=== PATIENT | female | born 1965 | race Caucasian/White ===

== ENCOUNTER 2017-11-12 16:40 | Emergency (ER) | payer OTHER ==
[~2017-11-12] VITALS: Ht 170.2 cm; Wt 103.0 kg
[~2017-11-12 16:40] MED LIST: AMITRIPTYLINE H10 MG PO; AMLODIPINE BESY10 MG PO; ASPIRIN EC81 MG PO; AVAPRO150 MG PO; HYDROCHLOROTHIA25 MG PO; JANUVIA100 MG PO; LISINOPRIL40 MG PO; METFORMIN HCL500 MG PO; TOPROL XL100 MG PO
== END 2017-11-12 21:02 | disposition home or self-care (01) ==
LOC: ED 16:40
DX: R10.10 Upper abdominal pain, unspecified (principal); E11.9 Type 2 diabetes mellitus without complications; I10 Essential (primary) hypertension; F17.200 Nicotine dependence, unspecified, uncomplicated; E66.01 Morbid (severe) obesity due to excess calories; Z88.8 Allergy status to other drugs, medicaments and biological substances; Z79.899 Other long term (current) drug therapy
CPT/HCPCS: 74176; 80053; 81001; 83605; 83690; 85025; 96374; 96375; 99284; J1885; J2270; J2405; J7030

== ENCOUNTER 2021-08-09 14:36 | Inpatient (IN) | payer OTHER ==
[~2021-08-09] VITALS: Ht 170.2 cm; Wt 91.7 kg
--- NOTE | 2021-08-09 20:46 | EKG ---
[facility] [address] [facility] [place] [address] Signed Normal sinus rhythm Left axis deviation Moderate voltage criteria for LVH, may be normal variant ( R in aVL , [place] product ) Abnormal QRS-T angle, consider primary T wave abnormality Abnormal ECG No previous ECGs available Confirmed by RICK ALMANZAR DO ([id number]) on 08/09/2021 8:46:14 PM Electronically Signed By: RICK ALMANZAR DO 08/09/[id number] PATIENT NAME: ZEINAB ASHLEY NICOLÁS Electrocardiogram DATE OF : 61 PHYSICIAN: RICK ALMANZAR DO REPORT #: [id number] REPORT IS CONFIDENTIAL AND NOT TO BE RELEASED WITHOUT AUTHORIZATION
--- NOTE | 2021-08-09 20:55 | NUR ---
IN TO GET ADMISSION VITALS, PT ARRIVED TO THE FLOOR VIA ED STRECHER, TRANSFER SELF TO THE BED, ICE WATER PROVIDED AT THIS TIME, PT IS TUCKED INTO BED, CALL LIGHT IN PLACE
--- NOTE | 2021-08-09 22:20 | NUR ---
IN ROOM TO COMPLETE ADMISSION HX ON PT. RECHECKED PT'S BP IT WAS HIGH UPON ARRIVAL TO [facility]. SWITCHED BP CUFF TO LARGE SIZE TO FIT PT'S ARM PROPERLY. BP REMAINS ELEVATED BUT IS BELOW CALL PARAMETERS. ADMINISTERED EVENING MEDICATIONS. EDUCATED PT ON FLUID RESTRICTION AND ORIENTED TO CALL LIGHT. SHE DENIES FURTHER NEEDS, CALL LIGHT IS CLOSE.
--- NOTE | 2021-08-09 22:45 | NUR ---
ASSESSMENT COMPLETE, VSS. SBP ELEVATED, BUT WITHIN PARAMETERS AND IMPROVED COMPARED TO WHEN IN ED. pt AWAKE AND RESTING IN BED, A/OX4. DENIES PAIN AND NAUSEA, WATER AT BEDSIDE. IV SITE WNL, SALINE LOCKED. pt REPORTS LOOSING 100-200 LBS OVER THE LAST 20 YEARS. REPORTS SHE DOES NOT TAKE INSULIN AT HOME, BUT WATCHES WHAT SHE EATS. pt REPORTS SHE WAS CHECKING HER BLOOD SUGARS, BUT HAS NOT RECENTLY BECAUSE THE MACHINE WAS "DISCONTINUED". S/SX OF HYPO AND HYPERGLYCEMAI DISCUSSED, pt VERBALIZED UNDERSTANDING. WILL MONITOR. +3 EDEMA TO RLE, ELEVATED WITH PILLOW. FELIX CATHETER PATENT, VOIDING QS. NO FURTHER NEEDS, CALL LIGHT IN REACH.
--- NOTE | 2021-08-10 00:15 | NUR ---
NEW ORDER FOR IV SODIUM BICARB, WEIGHER ALLOY ORIENTEE JUSTINO AWARE AND PREPARING MEDICATION.
--- NOTE | 2021-08-10 00:45 | NUR ---
scheduled iv sodium bicarbonate and one time dose iv lasix given, see emar. iv site wnl, brisk blood return noted. velez catheter emptied, no further needs. call light in reach.
--- NOTE | 2021-08-10 02:00 | NUR ---
IN TO GET VITALS
--- NOTE | 2021-08-10 03:24 | NUR ---
BP ELEVATED, PRN BP MEDICATION PROVIDED ALONG WITH PRN TYLENOL FOR 8/10 BACK PAIN, SEE EMAR. pt A/OX4, DENEIS NAUSEA. BOWEL TONES ACTIVE. pt TENSE IN BED, OFFERED TO HELP WITH REPOSITIONING, pt DECLINED WELL REFUSED TO ELEVATE RLE, STATING "IT HURTS MORE WHEN IT'S ELEVATED". WHEN ASKED WHERE IN RLE IT HURTS pt POINTS TO THIGH AREA AND STATES, "IT FEELS LIKE IT'S BEEN RIPPED OFF". WARM BLANKET PROVIDED. pt APPEARED TO SETTLE DOWN AND IS NOW RESTING QUIETLY. WILL CONTINUE TO MONITOR. CALL LIGHT IN REACH. IV SITE WNL, FLUIDS INFUSING DIRECTED.
--- NOTE | 2021-08-10 05:40 | NUR ---
IN TO GET VITALS, BP ELEVATED, RN INFORMED, FELIX EMPTIED, PT DID NOT WANT TO GET UP FOR A DAILY WEIGHT BUT WILL TRY A LITTLE BIT LATER, NO FURTHER NEEDS AT THIS TIME
--- NOTE | 2021-08-10 06:21 | NUR ---
MANUAL B/P ON THE RIGHT ARM PERFORMED BY THIS RN 178/76. REPORTED TO PATIENT'S NURSE TIM.
--- NOTE | 2021-08-10 08:12 | NUR ---
Patient has not been taking any medications
--- NOTE | 2021-08-10 10:18 | NUR ---
Hydralazine prn 25mg po admin for bp of 194/84, p 73.
--- NOTE | 2021-08-10 11:12 | NUR ---
Dr. العلي updated regarding elevated bp. No new orders. Will continue to monitor.
--- NOTE | 2021-08-10 14:14 | NUR ---
Patient sitting up in bed watching tv, no distress. Patient reports her stomach is upset from lunch. Patient declining nausea medication. No current needs. Personal supplies and call light within reach.
--- NOTE | 2021-08-10 14:30 | NUR ---
Patient assisted to restroom and back to bed. Patient has no current needs.
--- NOTE | 2021-08-10 17:11 | NUR ---
Tylenol 650mg po admin for coughing pain.
--- NOTE | 2021-08-10 19:42 | NUR ---
BEDSIDE REPORT FROM Clint Borges RN, PT RESTING IN BED CONSUMED 50% OF DINNER, SHE REPORTS SHE FEELS VERY FULL, SHE REQUESTS TO SIT UP IN RECLINER AT THIS TIME, PT ASSISTED UP TO RECLINER.
--- NOTE | 2021-08-10 21:38 | NUR ---
PT SITTING UP IN RECLINER SHE REPORTS NO PAIN OR NAUSEA AT THIS TIME, SHE IS ALERT AND ORIENTED. NO COMPLAINTS OR CONCERNS, NO REQUESTS AT THIS TIME.
--- NOTE | 2021-08-10 22:34 | NUR ---
PT BACK TO BED FROM RECLINER, FELIX CARE COMPLETE BY MARLENA MEJIA.
--- NOTE | 2021-08-10 22:38 | NUR ---
PATIENT CALLED STATING READY FOR BED. SBA. FELIX CARE DONE. ROOM LIGHTS OFF. NO OTHER NEEDS AT THIS TIME. CALL LIGHT IN REACH.
--- NOTE | 2021-08-11 02:39 | NUR ---
PT RESTING IN BED LATERALLY ON LEFT SIDE, NO DISTRESS NOTED, RR EVEN/SHALLOW AT 18 BPM. CALL LIGHT IN REACH.
--- NOTE | 2021-08-11 03:43 | NUR ---
PATIENT CALLED ASK FOR WATER. PROVIDED.
--- NOTE | 2021-08-11 04:51 | NUR ---
PT HAS SLEPT WELL OVER SHIFT, SHE HAS DENIED ANY PAIN OR NAUSEA OVER SHIFT, QUANTITY SUFFICIENT URINE OUT OF FELIX, PT V/S HAVE BEEN STABLE, NO PRN GIVEN OVER SHIFT, WAS ADMINISTERED MELATONIN AT [facility]. SHE HAS BEEN ONE PERSON ASSIST TO TRANSFER FROM RECLINER TO BED. PT REMAINS STABLE ON ROOM AIR, AND S/L,MAINTAINING FLUID RESTRICTION WITHIN LIMITS.
--- NOTE | 2021-08-11 06:36 | NUR ---
V/S, I&O'S AND DAILY WEIGHT DONE. NO OTHER NEEDS AT THIS TIME.
--- NOTE | 2021-08-11 07:42 | NUR ---
PATIENT IS CURRENTLY HAVE ECHO.
--- NOTE | 2021-08-11 08:50 | NUR ---
MORNING ASSESSMENT DONE. PATIENT IS SITTING UP IN BED TO EAT BREAKFAST. PATIENT DENIES , IS ON ROOM AIR AT 96%. PATIENT DENIES WANTING TO HAVE RIGHT LEG ELEVATED, SAID, "IT HURTS!" MORNING MEDICATIONS GIVEN, PER BP. FELIX CATHETER IS DRAINING CLEAR YELLOW URINE.
--- NOTE | 2021-08-11 09:45 | NUR ---
URINE FROM FELIX CATHETER SENT TO LAB.
--- NOTE | 2021-08-11 10:18 | NUR ---
BICARB INFUSION STARTED AT 125 ML/HR.
--- NOTE | 2021-08-11 13:48 | NUR ---
DON HAYWARD REQUESTED I NOT DISTURB PT-SHE HAS A BAD HEADACHE AND HAD JUST RECEIVED MEDS. WILL FOLLOW NEEDED
--- NOTE | 2021-08-11 13:48 | NUR ---
PATIENT IN BED WATCHING TV. VITALS AND I&O'S CHARTED. PATIENT REFUSED SHOWER, AM, AND ORAL CARE. CALL LIGHT IN REACH. NO FURTHER NEEDS AT THIS TIME.
--- NOTE | 2021-08-11 14:49 | NUR ---
PATIENT GIVEN AFTERNOON MEDICATIONS, DENIES OTHER NEEDS. EDEMA IS SLIGHTLY IMPROVED TO RIGHT LEG.
--- NOTE | 2021-08-11 16:33 | NUR ---
PATIENT SITTING UP IN BED, VISITING WITH SPOUSE. PATIENT DENIES NEEDS AT THIS TIME.
--- NOTE | 2021-08-11 17:24 | NUR ---
Spoke with pt and she lives with her spouse. Plans on dc to home. No steps or stairs. Pt denies needs.
--- NOTE | 2021-08-11 18:27 | NUR ---
PATIENT IN BED WATCHING TV. VITALS AND I&O'S CHARTED. CALL LIGHT IN REACH. NO FURTHER NEEDS AT THIS TIME.
--- NOTE | 2021-08-11 19:35 | NUR ---
IN TO SEE PT. PT LAYING IN BED WITH HOB ELEVATED. PT AWAKE AND ALERT. PT DENIES PAIN AT [facility]. NO OTHER NEEDS OR REQUEST AT THIS TIME. CALL LIGHT INT REACH.
--- NOTE | 2021-08-11 21:07 | NUR ---
IN TO SEE PT. PT ALERT AND OREITNED X 4. SCHEDULED MEDICATIONS AT ASSESSMENT DUE. I AND O'S COMPLETED. CRACKLES NOTED TO BILATERALY MIDDLE LOBES AND BASES. PT SALINE LOCKED AT THISITME. IV FLUSHING WELL, NO PAIN S/SX OF PHELIBITIES OR INFILTRATION NOTED. PT GIVEN IS AND EDUCATION PROVIDED. PT VERBALIZED UNDERSRTADNING AND ABLE TO DEMONSTRATE UNDERSTANDING. IS PERFORMED X 2 1250MLS. F/C DRAINING WELL AT THIS TIME. PT REPORTS HEADACH PAIN. PT REPORTS "ITS LIKE TENSION." PT REPORTS PAIN 3/10. PT GIVEN PRN TYLENOL PER ORDER AND REQUEST. PT UPDTAED ON PLAN OF CARE. 100MLS FRESH WATER PROVIDED. NO OTHER NEEDS OR REQUESTS AT THIS TIME. CALL LIGHT IN REACH.
--- NOTE | 2021-08-11 22:34 | NUR ---
IN TO SEE PT, F/U PAIN ASSESSMENT DUE. PT REPORTS PAIN 0/10. PT REPORTS SHE CONTINUES TO USE IS AT THE BEDSIDE WHILE AWAKE. NO OTHER NEEDS OR REQUESTS AT THIS TIME. CALL LIGHT IN REACH.
--- NOTE | 2021-08-12 02:03 | NUR ---
IN TO CHEK ON PT, VS AND ASSESSMENT DUE. PT SLEEPING RR 20. NO SIGNS OF PAIN NOTED. IV FLUIDS CONTINUE RUNNING AT THIS TIME. I AND O'S COMPLETED. CALL LIGHT IN REACH.
--- NOTE | 2021-08-12 03:01 | NUR ---
IN TO CHECK ON PT. PT RESTING WITH EYES CLOSED, RR 16. NO SIGNS OF PAIN NOTED. CALL LIGHT IN REACH.
--- NOTE | 2021-08-12 05:47 | NUR ---
IN TO SEE PT. VS COMPLETED, PT HAS ELEVATED BP ABOVE PARAMETER, PRN HYDROLAZINE GIVEN PER ORDER. I AND O'S COMPLETED. PT DOING IS INDEPENDNELTY IN BED WHILE AWAKE. PT GIVEN 150MLS ICE WATER. NO OTHER NEEDS OR RREQUESTS AT THIS TIME. CALL LIGHT IN REACH.
--- NOTE | 2021-08-12 05:57 | NUR ---
ALERT AND OREITNED X 4. 2 GM NA+ DIET. 1800 FLUID RESTICTION, TOLERATING WELL. PRN APAP GIVEN X 1 DURING SHIFT. CRACKLES NOTED, IS AT BEDSIDE, PT EDUCATION PROVIDED, USING IND WHILE AWAKE. 3+ PE EDEMA NOTED TO RLE. SBA. RA. SYSTOLIC BP 185, PRN HYDRAZINE GIVEN PER ORDER. AM LABS COMPLETED. WEIGHT THIS AM 91.6KG. F/C DRAINING CLEAR YELLOW URINE ADEQUATELY. SL. PT RESTED WELL THROUGHOUT SHIFT.
--- NOTE | 2021-08-12 07:10 | NUR ---
THIS RN RECEIVED REPORT ROSEANNE AND SHEELA RN. PT APPEARS TO BE RESTING AT THIS TIME.
--- NOTE | 2021-08-12 08:10 | NUR ---
PT AWAKE IN THE ROOM WATCHING TV IN BED. WHITE BOARD UPDATED, WARM CLOTH GIVEN FOR FACE. CALL LIGHT WITHIN REACH. NO FURTHER NEEDS AT THIS TIME.
--- NOTE | 2021-08-12 08:50 | NUR ---
I was able to visit with Joana today regarding her care and plan of care while here in the hospital. Joana states that her "Care is very good." She also confirms that she feels comfortable in her room and feels like she has access to what she needs at this time. Her pain is well controlled per her statement, and she is happy with the cleanliness of her room. She said that she does understand her medications that she is getting, and again expresses no concerns.
--- NOTE | 2021-08-12 08:56 | NUR ---
THIS RN IN PTS ROOM TO GIVE PT HER MORNING MEDS. THIS RN DISCUSSED WITH PT HER FLUID RESTRICTION PLAN FOR THE DAY. PT STATED UNDERSTANDING. THIS RN DICUSSED PTS MEDS, INCLUDING MAGNESIUM. PT COMLIANT AND PLEASANT THIS AM. PT STATES THAT SHE NEEDS NOTHING ELSE AT [facility].
--- NOTE | 2021-08-12 09:08 | NUR ---
Notified by Dr. العلي pt will need a follow up with nephrology. Called and spoke with Rosi OCHOA from [facility]. Pt has been assigned to Dr. Archibald as Dr. Avalos no longer works at [facility]. They will make a referral to nephrology.
--- NOTE | 2021-08-12 09:50 | NUR ---
Spoke with Joana, she states she is feeling better today. Denies needs to go home. Per 829 meeting pt will remain for two more days. Called Rosi at [facility] and set up a follow up appt. [facility] will set up an appt with nephrology.
--- NOTE | 2021-08-12 10:00 | NUR ---
THIS RN IN PTS ROOM TO CHECK ON PT. PTS IV MAG FINISHED AT THIS TIME. PT STATES THAT SHE IS DROWSY. THIS RN WILL REMOVE FELIX WHEN PT WAKES UP FROM NAP
--- NOTE | 2021-08-12 13:30 | NUR ---
PT AWAKE IN CHAIR. PT RN NOTIFIED OF NO VOID. CALL LIGHT WITHIN REACH. NO FURTHER NEEDS AT THIS TIME.
--- NOTE | 2021-08-12 15:05 | NUR ---
THIS RN IN PTS ROOM TO CHECK ON HER. PT UP TO CHAIR AT THIS TIME. PTS RIGHT LOWER LEG STILL EDEMATOUS +3 BUT THERE IS NO PAIN NOTED. THIS RN EDUCATED PT ABOUT PUTTING HER LEGS UP TO ASSIST WITH THE SWELLING. PT STATED UNDERSTANDING AND RECLINED HER LEGS AFTER EDUCATION. PT STATES NOTHING ELSE AT THIS TIME.
--- NOTE | 2021-08-12 18:16 | NUR ---
PT AWAKE IN BED WATCHING TV. CALL LIGHT WITHIN REACH. WARM BLANKET GIVEN. NO FURTHER NEEDS AT THIS TIME.
--- NOTE | 2021-08-12 19:00 | NUR ---
IN TO SEE PT. PT ALERT AND AWAKE, AT BEDSIDE. PT UPDATED ON PLAN OF CARE. NO NEEDS OR REQUEST. CALL LIGHT IN REACH.
--- NOTE | 2021-08-12 19:20 | NUR ---
IN TO SEE PT. PT ALERT AND AWAKE, NO PAIN. UPDATED ON PLAN OE CARE. CALL LIGHT IN REACH.
--- NOTE | 2021-08-12 21:27 | NUR ---
IN TO SEE PT. SCHEDULED MEDICATIONS AND [id number] DUE. I AND O'S COMPLETED. VS COMPLETED. PT DENIES PAIN. CRACKLES IN BILATERAL BASES, WHEEZES ANTERIORLY ON INSPIRATION. 96 RA. 2+ pe TO RIGHT FOOT, NO EDEMA TO LLE. PT GIVEN 200 MLS FLUIDS AT THIS TIME. PT ALERT AND OREITNED X 3. DENIES PAIN. NO OTHER NEEDS OR COCNERS AT THIS TIME. CALL LIGHT IN REACH.
--- NOTE | 2021-08-12 23:42 | NUR ---
IN TO CHECK ON PT. PT SLEEPING WITH HOB ELEVATED. RR 20. NO SIGNS OF PAIN NOTED. CALL LIGHT IN REACH.
--- NOTE | 2021-08-13 00:45 | NUR ---
ASSUMED CARE OF PATIENT. PATIENT IS RESTING IN BED WITH EYES CLOSED, RR 19. CALL LIGHT IN REACH.
--- NOTE | 2021-08-13 02:15 | NUR ---
PATIENT IS RESTING IN BED WITH EYES CLOSED, RR 17. CALL LIGHT IN REACH.
--- NOTE | 2021-08-13 03:35 | NUR ---
PATIENT UP TO THE RESTROOM. PATIENT WAS ABLE TO VOID. PATIENT IS BACK IN BED RESTING. PATIENT DENIES ANY NEEDS. PATIENT PROVIDED WITH LAST OF FREE WATER PER FLUID RESTRICTION. CALL LIGHT IN REACH.
--- NOTE | 2021-08-13 04:14 | NUR ---
PATIENT IS RESTING IN BED WITH EYES CLOSED, RR 18. CALL LIGHT IN REACH.
--- NOTE | 2021-08-13 06:20 | NUR ---
MORNING VITALS TAKEN AND RECORDED. INTAKE AND OUTPUT RECORDED. NEW IV STARTED. PATIENT DENIES ANY FURTHER NEEDS. CALL LIGHT IN REACH.
--- NOTE | 2021-08-13 07:36 | NUR ---
PT RESTING IN BED EYES CLOSED RR EVEN NO DISTRESS NOTED, KATE BEDSIDE REPORT PT HAS HAD AN UNREMARKABLE NIGHT, INDEPENDENT IN ROOM.
--- NOTE | 2021-08-13 09:10 | NUR ---
Supplies were put into the bathroom for a shower and patient agreed to call when ready for a shower. Patient is independent in the room. Vitals, I&Os are complete. Patient's blood pressure was 170/65. Map 91. Pulse 63.
--- NOTE | 2021-08-13 09:46 | NUR ---
PT UP TO SHOWER INDEPENDENTLY, IV SITE WRAPPED. ASSESSMENT COMPLETE
--- NOTE | 2021-08-13 09:57 | NUR ---
PT FINISHED WITH SHOWER. PT UP TO CHAIR, INDEPENDANTLY. WARM BLANKET PROVIDED. FLOOR CLEANED. LINENES CHANGED. PT DENIES ADDITIONAL REQUESTS OR COMPLAINTS. CALL LIGHT WITHIN REACH.
--- NOTE | 2021-08-13 10:15 | NUR ---
Spoke with Joana. Cont. to feel better. Spouse in room. Denies needs for dc to home. Awaiting visit from hospitalist.
--- NOTE | 2021-08-13 12:08 | NUR ---
PT REPORTS TOE NAILS ARE PAINFUL, SHE HAS AN APPOINTMENT FOR THE , SHE WAS WONDERING IF THIS HOSPITAL HAS SERVICES TO ATTEND HER TOE NAILS HERE. EXPLAINED TO PT THAT WE DO NOT HAVE A PROVIDER IN HOUSE, HOWEVER IF THE ATTENDING DOCTOR FEELS NEED TO SHE CAN HAVE OR CONSULT. PT SAID NO ITS NOT THAT BAD. PT SPOUSE AT CHAIR SIDE.
--- NOTE | 2021-08-13 13:43 | NUR ---
PT'S SPOUSE LEAVING AT THIS TIME AFTER HAVING VISIT.
--- NOTE | 2021-08-13 14:00 | NUR ---
Patient is in chair. Call light is in reach.
--- NOTE | 2021-08-13 16:03 | NUR ---
PT IS SITTING UP IN RECLINER, LEGS UP, SHE REPORTS NO PAIN OR NAUSEA, SHE REPORTS SHE HAS NO NEEDS OR REQUESTS AT THIS TIME. SHE IS SMILING AND WATCHING TV.
--- NOTE | 2021-08-13 17:38 | NUR ---
ORDERED IVF TO START NS @125/ML, OK TO D/C FLUID RESTRICITON. PT SITTING UP IN RECLINER EATING DINNER AT THIS TIME.
--- NOTE | 2021-08-13 17:40 | NUR ---
PT HAS SHOWERED, SHE HAS BEEN UP IN RECLINER ALL AFTERNOON, SHE HAS BEEN INDEPENDENT. SHE HAS REPORTED NOT HAVING PAIN ALL SHIFT, NO NAUSEA, GOOD APPETITE TODAY, DISCONT. FLUID RESTRICT AND STARTED IVF. HER RLE SWELLING IS IMPROVING.
--- NOTE | 2021-08-13 18:13 | NUR ---
Patient's BP was 164/71. 95 Map. 66 Pulse. Patient is comfortable in chair with call light in reach.
--- NOTE | 2021-08-13 18:48 | NUR ---
PT UP TO BATHROOM STANDBY ASSIST FOR IV POLE. PT TOLERATED WELL, STEADY GAIT.
--- NOTE | 2021-08-13 19:45 | NUR ---
RECEIVED REPORT FROM DAY SHIFT RN. PATIENT IS RESTING IN RECLINER WATCHING TV. PATIENT DENIES ANY NEEDS. CALL LIGHT IN REACH.
--- NOTE | 2021-08-13 21:40 | NUR ---
PATIENT ASSESMENT COMPLETED. PATIENT DENIES ANY PAIN OR NAUSEA. IV INFFUSING PER ORDER. VITALS TAKEN AND RECORDED. INTAKE AND OUTPUT RECORDED. FRESH ICE WATER PROVIDED. PATIENT IS AAOX4. PATIENT DENIES ANY FURTHER NEEDS. PRN SLEEP AID GIVEN PER ORDER. CALL LIGHT IN REACH.
--- NOTE | 2021-08-13 23:32 | NUR ---
PATIENT IS RESTING IN BED WITH EYES CLSOED, RR 16. CALL LIGHT IN REACH. IV INFUSING PER ORDER.
--- NOTE | 2021-08-14 01:33 | NUR ---
PATIENT IS RESTING IN BED. IV ALARMING. NEW BAG OF FLUID INFUSING PER ORDER. PATIENT DENIES ANY NEEDS. CALL LIGHT IN REACH.
--- NOTE | 2021-08-14 02:32 | NUR ---
PATIENT ASSISTED TO THE RESTROOM A SBA. PATIENT WAS ELIZABETH TO VOID. PATIENT IS BACK IN BED RESTIGN. PATIENT DENIES ANY NEEDS. CALL LIGHT IN REACH. IV INFUSING PER ORDER.
--- NOTE | 2021-08-14 06:30 | NUR ---
PATIENT ASSISTED TO THE RESTROOM A SBA. PATIENT IS BACK IN BED RESTING. PATIENTS DAILY WEIGHT TAKEN AND RECORDED. VITALS TAKEN AND RECORDED. INTAKE AND OUTPUT RECORDED. PATIENTS IV INFUSING PER ORDER. PATIENT DENIES ANY NEEDS. CALL LIGHT IN REACH.
--- NOTE | 2021-08-14 07:30 | NUR ---
report recieved from night warehouse manager RN, pt sitting in bed wacthing tv, call light within reach NS @125, denies any needs at the moment.
--- NOTE | 2021-08-14 08:45 | NUR ---
rn in room to do morning assessment, pt denies any pain at the moment, no sob, rr even and nonlabored. no needs at the moment
--- NOTE | 2021-08-14 09:45 | NUR ---
Spoke with Joana. She plans on dc to home today with her spouse. Denies needs, states feeling so much better than on admit.
[2021-08-14] MEDS ORDERED: AMLODIPINE BESY10 MG PO (10:06)
[2021-08-14] MEDS ORDERED: DOXAZOSIN MESYLA1 MG PO (10:06)
--- NOTE | 2021-08-14 10:51 | NUR ---
Patient is in bed and pharmacy is in the room. is in the room. Call light is in reach.
--- NOTE | 2021-08-14 12:46 | NUR ---
CONNECTED WITH BOTH PT AND HER SPOUSE THEY WERE LEAVING IN WC FOR DC. GAVE ENCOURAGEMENT AND BLESSING. WILL FOLLOW NEEDED
== END 2021-08-14 11:45 | disposition home or self-care (01) | DRG 683 ==
LOC: ED 14:36 → MS 20:26
PROVIDERS: ADMIT Student in an Organized Health Care Education/Training Program; ATTEND Student in an Organized Health Care Education/Training Program
PROC: 8E0ZXY6 Isolation (ICD-10-PCS; principal; 2021-08-09)
DX: N17.0 Acute kidney failure with tubular necrosis (principal); I50.32 Chronic diastolic (congestive) heart failure; I13.0 Hypertensive heart and chronic kidney disease with heart failure and stage 1 through stage 4 chronic kidney disease, or unspecified chronic kidney disease; E87.2 Acidosis; Z20.822 Contact with and (suspected) exposure to COVID-19; B97.4 Respiratory syncytial virus as the cause of diseases classified elsewhere; N18.9 Chronic kidney disease, unspecified; E11.22 Type 2 diabetes mellitus with diabetic chronic kidney disease; D50.9 Iron deficiency anemia, unspecified; D63.1 Anemia in chronic kidney disease; F17.200 Nicotine dependence, unspecified, uncomplicated; Z79.899 Other long term (current) drug therapy
CPT/HCPCS: 51702; 71045; 74176; 80048; 80053; 80061; 81001; 82553; 82570; 82803; 83605; 83735; 83880; 84100; 84156; 84300; 84443; 84484; 85025; 85379; 93306; 93971; 99285-25; J1644; J1940; J3475; J7030; U0003

== ENCOUNTER 2021-11-03 15:13 | Emergency (ER) | payer OTHER ==
[~2021-11-03] VITALS: Ht 167.6 cm; Wt 94.8 kg
[~2021-11-03 15:13] MED LIST changes: +DOXAZOSIN MESYLA1 MG PO
== END 2021-11-04 01:34 | disposition home or self-care (01) ==
LOC: ED 15:13
DX: E11.22 Type 2 diabetes mellitus with diabetic chronic kidney disease (principal); I12.0 Hypertensive chronic kidney disease with stage 5 chronic kidney disease or end stage renal disease; N18.5 Chronic kidney disease, stage 5; D63.1 Anemia in chronic kidney disease; E11.40 Type 2 diabetes mellitus with diabetic neuropathy, unspecified; F17.200 Nicotine dependence, unspecified, uncomplicated; Z88.8 Allergy status to other drugs, medicaments and biological substances; Z79.899 Other long term (current) drug therapy
CPT/HCPCS: 36415; 80053; 85025; 86850; 86900; 86901; 86922; 99283; A9270; P9016

== ENCOUNTER 2021-11-28 09:57 | Emergency (ER) | payer OTHER ==
[~2021-11-28] VITALS: Ht 167.6 cm; Wt 94.8 kg
--- OUTSIDE RECORDS SUMMARY | 2021-11-28 10:04 | XMS ---
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 - 2 Visits in 30 Days CARE PROVIDERS There are no care providers on record at this time. Oren has no Care Guidelines for this patient. Aram VISIT COUNT (12 MO.) 3 [facility] [place] TOTAL 3 NOTE: Visits indicate total known visits. ED/C VISIT TRACKING (12 MO.) 11/28/2021 09:58 [facility] [place] TYPE: Emergency COMPLAINT: - DEHYDRATED 11/03/2021 15:14 [facility] [place] TYPE: Emergency COMPLAINT: - ABNORMAL LAB RESULTS DIAGNOSES: - Nicotine dependence, unspecified, uncomplicated - Type 2 diabetes mellitus with diabetic neuropathy, unspecified - Chronic kidney disease, stage 5 - Type 2 diabetes mellitus with diabetic chronic kidney disease - Abnormal finding of blood chemistry, unspecified - Allergy status to other drugs, medicaments and biological substances - Hypertensive chronic kidney disease with stage 5 chronic kidney disease or end stage renal disease - Other watermaster (current) drug therapy - Anemia in chronic kidney disease 08/09/2021 14:37 [facility] [place] TYPE: Emergency COMPLAINT: - R LEG SWELLING INPATIENT VISIT TRACKING (12 MO.) 08/09/2021 20:26 [facility] [place] TYPE: Medical Surgical COMPLAINT: - ACUTE KIDNEY INJURY DIAGNOSES: - Nicotine dependence, unspecified, uncomplicated - Nicotine dependence, unspecified, uncomplicated - Hypertensive heart and chronic kidney disease with heart failure and stage 1 through stage 4 chronic kidney disease, or unspecified chronic kidney disease - Acute kidney failure with tubular necrosis - Anemia in chronic kidney disease - Chronic kidney disease, unspecified - Other watermaster (current) drug therapy - Chronic diastolic (congestive) heart failure - Iron deficiency anemia, unspecified - Acute kidney failure with tubular necrosis - Chronic diastolic (congestive) heart failure - Hypertensive heart and chronic kidney disease with heart failure and stage 1 through stage 4 chronic kidney disease, or unspecified chronic kidney disease - Iron deficiency anemia, unspecified - Respiratory syncytial virus as the cause of diseases classified elsewhere - Respiratory syncytial virus as the cause of diseases classified elsewhere - Anemia in chronic kidney disease - Acute kidney failure, unspecified - Type 2 diabetes mellitus with diabetic chronic kidney disease - Chronic kidney disease, unspecified - Type 2 diabetes mellitus with diabetic chronic kidney disease - Other watermaster (current) drug therapy - Acidosis - Acidosis [email or web address]
[2021-11-28] MEDS ORDERED: ASPIRIN81 MG PO (10:43)
--- NOTE | 2021-11-29 07:13 | EKG ---
[facility] [address] [place] [address] Signed Sinus bradycardia Left axis deviation Minimal voltage criteria for LVH, may be normal variant ( Vik product ) Nonspecific T wave abnormality Abnormal ECG When compared with ECG of 09-AUG-2021 15:29, Vent. rate has decreased BY 30 BPM Nonspecific T wave abnormality, worse in Lateral leads Confirmed by ANA BEASLEY MD ([id number]) on 11/29/2021 7:13:18 AM Electronically Signed By: ANA BEASLEY MD 11/29/21 0713 PATIENT NAME: ZEINAB ASHLEY Electrocardiogram DATE OF : 61 PHYSICIAN: ANA BEASLEY MD REPORT #: [id number] REPORT IS CONFIDENTIAL AND NOT TO BE RELEASED WITHOUT AUTHORIZATION
== END 2021-11-28 12:23 | disposition home or self-care (01) ==
LOC: ED 09:57
DX: R53.1 Weakness (principal); D64.9 Anemia, unspecified; E11.22 Type 2 diabetes mellitus with diabetic chronic kidney disease; I12.0 Hypertensive chronic kidney disease with stage 5 chronic kidney disease or end stage renal disease; N18.5 Chronic kidney disease, stage 5; E11.21 Type 2 diabetes mellitus with diabetic nephropathy; F17.200 Nicotine dependence, unspecified, uncomplicated; Z79.899 Other long term (current) drug therapy; Z88.8 Allergy status to other drugs, medicaments and biological substances; Z79.82 Long term (current) use of aspirin
CPT/HCPCS: 36415; 80053; 84484; 85025; 85060; 93005; 93010; 99285-25; J7040

== ENCOUNTER 2021-12-03 06:07 | Emergency (ER) | payer OTHER ==
[~2021-12-03] VITALS: Ht 167.6 cm; Wt 86.2 kg
[~2021-12-03 06:07] MED LIST changes: +ASPIRIN81 MG PO
--- OUTSIDE RECORDS SUMMARY | 2021-12-03 06:10 | XMS ---
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 Care History Medical/Surgical 12/01/2021 [facility] - PATIENT IS [facility] ELIGIBLE, \T\nbsp; PLEASE REFER PATIENT TO [facility] FOR NON EMERGENT MEDICAL NEEDS. \T\nbsp; [facility] CAN SEE PATIENTS SAME DAY FOR APTS IF PATIENT CALLS FIRST THING IN THE MORNING. E.D. VISIT COUNT (12 MO.) 4 [facility] TOTAL 4 NOTE: Visits indicate total known visits. ED/UCC VISIT TRACKING (12 MO.) 12/03/2021 06:08 [facility] [place] TYPE: Emergency COMPLAINT: - POST SURGICAL WOUND PAIN 11/28/2021 09:58 [facility] [place] TYPE: Emergency COMPLAINT: - DEHYDRATED DIAGNOSES: - Type 2 diabetes mellitus with diabetic nephropathy - Chronic kidney disease, stage 5 - Weakness - Allergy status to other drugs, medicaments and biological substances - termite treater (current) use of aspirin - Nicotine dependence, unspecified, uncomplicated - Type 2 diabetes mellitus with diabetic chronic kidney disease - Hypertensive chronic kidney disease with stage 5 chronic kidney disease or end stage renal disease - Anemia, unspecified - Other assisted (current) drug therapy 11/03/2021 15:14 [facility] [place] TYPE: Emergency [...] or end stage renal disease - Other assisted (current) drug therapy - Anemia in chronic [...] - Chronic kidney disease, unspecified - Other emt intermediate (current) drug therapy - Chronic diastolic (congestive) [...] with diabetic chronic kidney disease - Other assisted (current) drug therapy - Acidosis - Acidosis [email or web address]
== END 2021-12-03 09:40 | disposition home or self-care (01) ==
LOC: ED 06:07
DX: T85.71XA Infection and inflammatory reaction due to peritoneal dialysis catheter, initial encounter (principal); N99.89 Other postprocedural complications and disorders of genitourinary system; I12.0 Hypertensive chronic kidney disease with stage 5 chronic kidney disease or end stage renal disease; E11.22 Type 2 diabetes mellitus with diabetic chronic kidney disease; E11.40 Type 2 diabetes mellitus with diabetic neuropathy, unspecified; N18.5 Chronic kidney disease, stage 5; F17.200 Nicotine dependence, unspecified, uncomplicated; Z88.8 Allergy status to other drugs, medicaments and biological substances; Z79.899 Other long term (current) drug therapy; Z79.82 Long term (current) use of aspirin
CPT/HCPCS: 36415; 74176; 80048; 83605; 85025; 85060; 99284-25

== ENCOUNTER 2023-06-11 18:02 | Emergency (ER) | payer MEDICARE, OTHER ==
[~2023-06-11] VITALS: Ht 167.6 cm; Wt 86.2 kg
[2023-06-11 18:30] LABS: BASOPHILS 0.8 % (0-2); HEMATOCRIT 27.1 % (35.0-50.0); HEMOGLOBIN 9.1 g/dL (12.0-18.0); LYMPHOCYTES 12.3 % (24-44); MCH 32.6 (27-36); MCHC 33.5 g/dl (30-36); MCV 97.3 fl (81-99); MONOCYTES 4.9 % (0-12); PLATELET COUNT 193 K/uL (140-440); RBC 2.79 M/ul (4.3-5.7); RDW 13.3 (10.5-15.0)
[2023-06-11 18:44] LABS: ALBUMIN 3.3 g/dL (3.4-5.0); ALBUMIN/GLOBULIN RATIO 0.87 (1.1-2.4); ANION GAP 19.6 (7-21); BILIRUBIN, TOTAL 0.4 ng/dL (0.2-1.0); BUN/CREATININE RATIO 9.89 (6.0-28.6); CALCIUM 7.7 mg/dL (8.5-10.1); CREATININE, SERUM 8.29 mg/dL (0.55-1.02); POTASSIUM 3.6 mmol/L (3.5-5.1); PROTEIN, TOTAL 7.1 g/dL (6.4-8.2)
[2023-06-11] MEDS ORDERED: CYCLOBENZAPRINE10 MG PO (20:13)
[2023-06-11] MEDS ORDERED: HYDROCODON-ACE1 EA10 PO (20:13)
[2023-06-11 20:55] VITALS: BP 188/79
== END 2023-06-11 20:55 | disposition home or self-care (01) ==
LOC: ED 18:02
PROVIDERS: Emergency Medicine
DX: R25.2 Cramp and spasm (principal); I12.0 Hypertensive chronic kidney disease with stage 5 chronic kidney disease or end stage renal disease; E11.22 Type 2 diabetes mellitus with diabetic chronic kidney disease; N18.6 End stage renal disease; Z99.2 Dependence on renal dialysis; E11.40 Type 2 diabetes mellitus with diabetic neuropathy, unspecified; F17.200 Nicotine dependence, unspecified, uncomplicated; Z91.048 Other nonmedicinal substance allergy status; Z79.899 Other long term (current) drug therapy; Z79.82 Long term (current) use of aspirin
CPT/HCPCS: 36415; 80053; 83735; 85025; 96374; 96375; 99283-25; A9270; J1170; J2405

== ENCOUNTER 2024-02-03 04:17 | Emergency (ER) | payer MEDICARE, OTHER ==
[~2024-02-03] VITALS: Ht 167.6 cm; Wt 102.0 kg
[~2024-02-03 04:17] MED LIST changes: +CYCLOBENZAPRINE10 MG PO; +HYDROCODON-ACE1 EA10 PO
[2024-02-03] MEDS ORDERED: ASPIRIN 81 MG CHEW PO ONE (04:30)
[2024-02-03] MEDS ORDERED: NITROGLYCERIN 0.4 MG SUBL SL PRN (04:30)
[2024-02-03] MEDS ORDERED: ondansetron HCL 4 MG/2 ML VIAL IV ONE (04:30)
[2024-02-03] MEDS ORDERED: FAMOTIDINE 20 MG TAB PO ONE (04:30)
[2024-02-03] MEDS ORDERED: methylPREDNISolone SOD SUCC 125 MG/2 ML VIAL IV ONE (04:30)
[2024-02-03] MEDS ORDERED: MORPHINE SULFATE 4 MG/ML VIAL IV ONE (04:30)
[2024-02-03] MEDS ORDERED: ALBUTEROL/IPRATROPIUM 3 ML NEB INH ONE (04:30)
[2024-02-03 04:39] LABS: BASOPHILS 0.6 % (0-2); EOSINOPHILS 1.1 % (0-6); HEMATOCRIT 28.3 % (35.0-50.0); HEMOGLOBIN 9.2 g/dL (12.0-18.0); LYMPHOCYTES 5.5 % (24-44); MCHC 32.4 g/dl (30-36); MCV 95.7 fl (81-99); MONOCYTES 4.5 % (0-12); NEUTROPHILS 88.3 % (39-80); PLATELET COUNT 232 K/uL (140-440); RBC 2.96 M/ul (4.3-5.7); RDW 13.8 (10.5-15.0)
[2024-02-03] MEDS ORDERED: METOPROLOL TART25 MG PO (04:39)
[2024-02-03] MEDS ORDERED: FAMOTIDINE 20 MG/ 2 ML VIAL IV ONE (04:45)
[2024-02-03 05:00] LABS: ALBUMIN 2.5 g/dL (3.4-5.0); ALBUMIN/GLOBULIN RATIO 0.61 (1.1-2.4); ALKALINE PHOSPHATASE 106 U/L (46-116); ALT (SGPT) 10 U/L (14-59); ANION GAP 21.5 (7-21); AST (SGOT) 12 U/L (15-37); BILIRUBIN, TOTAL 0.4 ng/dL (0.2-1.0); BUN/CREATININE RATIO 7.37 (6.0-28.6); CARBON DIOXIDE 21 mmol/L (21-32); CHLORIDE 102 mmol/L (98-107); GLOMERULAR FILTRATION RATE,EST 4 mL/min (>60); POTASSIUM 4.5 mmol/L (3.5-5.1); PROTEIN, TOTAL 6.6 g/dL (6.4-8.2); UREA NITROGEN 76 mg/dL (7-18)
[2024-02-03 05:23] LABS: CALCIUM 6.4 mg/dL (8.5-10.1)
[2024-02-03 05:23] LABS: INFLUENZA B NAA NEGATIVE (NEGATIVE); RESPIRATORY SYNCYTIAL VIR NAA NEGATIVE (NEGATIVE)
[2024-02-03] MEDS ORDERED: CALCIUM CHLORIDE 1,000 MG/10 ML SYR IV ONE (05:30)
[2024-02-03] MEDS ORDERED: hydrALAZINE HCL 20 MG/ML VIAL IV PRN (05:45)
[2024-02-03] MEDS ORDERED: DOXAZOSIN MESYLATE 4 MG TAB PO ONE (08:00)
[2024-02-03] MEDS ORDERED: AMLODIPINE BESYLATE 10 MG TAB PO ONE (08:00)
[2024-02-03] MEDS ORDERED: METOPROLOL SUCCINATE 25 MG TABCR PO ONE (08:00)
--- NOTE | 2024-02-03 12:00 | EKG ---
[facility] [address] [place] [address] Signed Sinus rhythm with premature atrial complexes Left anterior fascicular block Minimal voltage criteria for LVH, may be normal variant ( [place] product ) Abnormal ECG When compared with ECG of 28-NOV-2021 10:45, premature atrial complexes are now present Vent. rate has increased BY 32 BPM Nonspecific T wave abnormality, improved in Lateral leads QT has lengthened Confirmed by Jimmy Timmons MD ([id number]) on 02/03/2024 12:00:22 PM Electronically Signed By: JIMMY TIMMONS 02/03/24 1200 PATIENT NAME: ZEINAB ASHLEY Electrocardiogram DATE OF : 61 PHYSICIAN: JIMMY TIMMONS REPORT #: [id number] REPORT IS CONFIDENTIAL AND NOT TO BE RELEASED WITHOUT AUTHORIZATION
[2024-02-03 12:31] VITALS: BP 159/76
== END 2024-02-03 12:34 | disposition short-term general hospital (02) ==
LOC: ED 04:17
PROVIDERS: Internal Medicine
DX: J81.1 Chronic pulmonary edema (principal); R07.9 Chest pain, unspecified; I12.0 Hypertensive chronic kidney disease with stage 5 chronic kidney disease or end stage renal disease; N18.5 Chronic kidney disease, stage 5; E11.22 Type 2 diabetes mellitus with diabetic chronic kidney disease; F17.200 Nicotine dependence, unspecified, uncomplicated; Z88.8 Allergy status to other drugs, medicaments and biological substances; Z79.899 Other long term (current) drug therapy; Z79.82 Long term (current) use of aspirin
CPT/HCPCS: 36415; 71045; 71260; 80053; 83880; 84484; 85025; 85379; 87502; 93005; 93010; 94640; 99285-25; A9270; J0360; J2270; J2405; J2919; Q9967; U0002

== ENCOUNTER 2024-02-17 12:57 | Emergency (ER) | payer MEDICARE, OTHER ==
[~2024-02-17] VITALS: Ht 167.6 cm; Wt 98.5 kg
[~2024-02-17 12:57] MED LIST changes: +METOPROLOL TART25 MG PO
[2024-02-17] MEDS ORDERED: INDAPAMIDE2.5 MG PO (13:14)
[2024-02-17 13:15] LABS: BASOPHILS 0.5 % (0-2); EOSINOPHILS 0.5 % (0-6); HEMATOCRIT 27.9 % (35.0-50.0); HEMOGLOBIN 9.1 g/dL (12.0-18.0); LYMPHOCYTES 6.7 % (24-44); MCH 31.8 (27-36); MCHC 32.5 g/dl (30-36); MCV 97.7 fl (81-99); NEUTROPHILS 88.3 % (39-80); PLATELET COUNT 220 K/uL (140-440); RBC 2.86 M/ul (4.3-5.7); RDW 14.3 (10.5-15.0)
[2024-02-17 13:29] LABS: ALBUMIN 2.8 g/dL (3.4-5.0); ALBUMIN/GLOBULIN RATIO 0.7 (1.1-2.4); BILIRUBIN, TOTAL 0.5 ng/dL (0.2-1.0); BUN/CREATININE RATIO 6.79 (6.0-28.6); CALCIUM 6.7 mg/dL (8.5-10.1); CREATININE, SERUM 9.71 mg/dL (0.55-1.02); PROTEIN, TOTAL 6.8 g/dL (6.4-8.2)
[2024-02-17] MEDS ORDERED: NITROGLYCERIN PACKET TOP ONE (16:00)
[2024-02-17] MEDS ORDERED: NITROGLYCERIN 0.4 MG SUBL SL PRN (16:00)
[2024-02-17] MEDS ORDERED: FUROSEMIDE 100 MG/10 ML VIAL IV ONE (16:30)
[2024-02-17] MEDS ORDERED: SOAANZ40 MG PO (17:49)
[2024-02-17 18:17] VITALS: BP 189/103
--- NOTE | 2024-02-18 16:10 | EKG ---
[facility] [address] [facility] [place] [address] Signed Sinus tachycardia Left posterior fascicular block Cannot rule out Inferior infarct (cited on or before 17-FEB-2024) Anterior infarct (cited on or before 17-FEB-2024) Abnormal ECG When compared with ECG of 17-FEB-2024 13:05, (Unconfirmed) Serial changes of Anterior infarct present Confirmed by Taiwo Gotti ([id number]) on 02/18/2024 4:10:15 PM Electronically Signed By: TAIWO GOTTI MD 02/18/24 1610 PATIENT NAME: ZEINAB ASHLEY Electrocardiogram DATE OF : 61 PHYSICIAN: TAIWO GOTTI MD REPORT #: [id number] REPORT IS CONFIDENTIAL AND NOT TO BE RELEASED WITHOUT AUTHORIZATION
== END 2024-02-17 18:17 | disposition home or self-care (01) ==
LOC: ED 12:57
PROVIDERS: Emergency Medicine
DX: J81.1 Chronic pulmonary edema (principal); F17.200 Nicotine dependence, unspecified, uncomplicated; E11.22 Type 2 diabetes mellitus with diabetic chronic kidney disease; E11.40 Type 2 diabetes mellitus with diabetic neuropathy, unspecified; I12.0 Hypertensive chronic kidney disease with stage 5 chronic kidney disease or end stage renal disease; N18.5 Chronic kidney disease, stage 5; Z79.899 Other long term (current) drug therapy; Z88.8 Allergy status to other drugs, medicaments and biological substances; R22.41 Localized swelling, mass and lump, right lower limb
CPT/HCPCS: 36415; 71045; 80053; 83735; 84484; 85025; 93005; 93010; 93971; 96374; 99285-25; J1940

== ENCOUNTER 2024-02-18 07:03 | Emergency (ER) | payer MEDICARE, OTHER ==
[~2024-02-18] VITALS: Ht 167.6 cm; Wt 106.0 kg
[~2024-02-18 07:03] MED LIST changes: +INDAPAMIDE2.5 MG PO; +SOAANZ40 MG PO
[2024-02-18] MEDS ORDERED: NITROGLYCERIN PACKET TOP ONE (07:15)
[2024-02-18] MEDS ORDERED: AMIODARONE/DEXTROSE 100 ML IV ONE (07:15)
[2024-02-18] MEDS ORDERED: FUROSEMIDE 100 MG/10 ML VIAL IV ONE (07:15)
[2024-02-18 07:16] LABS: PH, VENOUS 7.038 (7.31-7.41)
[2024-02-18 07:17] LABS: BASOPHILS 1.1 % (0-2); EOSINOPHILS 1.1 % (0-6); HEMATOCRIT 28.6 % (35.0-50.0); HEMOGLOBIN 8.7 g/dL (12.0-18.0); LYMPHOCYTES 20.4 % (24-44); MCHC 30.5 g/dl (30-36); MCV 101.8 fl (81-99); MONOCYTES 4.2 % (0-12); NEUTROPHILS 73.2 % (39-80); PLATELET COUNT 263 K/uL (140-440); RBC 2.81 M/ul (4.3-5.7); RDW 15.5 (10.5-15.0)
[2024-02-18 07:29] LABS: INR 1.28 (0.80-1.30); PROTIME 15.6 Sec (11.2-14.2)
[2024-02-18] MEDS ORDERED: AMIODARONE/DEXTROSE 200 ML IV ONE ×2 (07:30→13:16)
[2024-02-18 07:43] LABS: ALBUMIN 2.7 g/dL (3.4-5.0); ALBUMIN/GLOBULIN RATIO 0.71 (1.1-2.4); BILIRUBIN, TOTAL 0.5 ng/dL (0.2-1.0); BUN/CREATININE RATIO 5.74 (6.0-28.6); CALCIUM 7.3 mg/dL (8.5-10.1); CREATININE, SERUM 9.74 mg/dL (0.55-1.02); MAGNESIUM 2.3 mg/dL (1.8-2.4); POTASSIUM 3.4 mmol/L (3.5-5.1); PROTEIN, TOTAL 6.5 g/dL (6.4-8.2)
[2024-02-18 07:45] LABS: ANION GAP 30.4 (7-21)
[2024-02-18] MEDS ORDERED: NITROGLYCERIN 50MG/D5W 250 ML IV SCH (07:45)
[2024-02-18 08:05] LABS: PH, VENOUS 7.191 (7.31-7.41)
[2024-02-18] MEDS ORDERED: INSULIN LISPRO 100 UNIT/ML ML IV ONE (08:30)
[2024-02-18 09:22] LABS: PH, VENOUS 7.341 (7.31-7.41)
[2024-02-18 09:48] LABS: ALBUMIN 2.6 g/dL (3.4-5.0); ALBUMIN/GLOBULIN RATIO 0.68 (1.1-2.4); ANION GAP 24.5 (7-21); BILIRUBIN, TOTAL 0.4 ng/dL (0.2-1.0); BUN/CREATININE RATIO 5.85 (6.0-28.6); CALCIUM 7.2 mg/dL (8.5-10.1); CREATININE, SERUM 9.4 mg/dL (0.55-1.02); POTASSIUM 3.5 mmol/L (3.5-5.1); PROTEIN, TOTAL 6.4 g/dL (6.4-8.2)
[2024-02-18 12:00] VITALS: BP 171/77
--- NOTE | 2024-02-18 16:11 | EKG ---
[facility] [address] [facility] [place] [address] Signed Sinus tachycardia Left axis deviation Nonspecific intraventricular block Minimal voltage criteria for LVH, may be normal variant ( [place] product ) Possible Anterolateral infarct , age undetermined Abnormal ECG No previous ECGs available Confirmed by Taiwo Gotti ([id number]) on 02/18/2024 4:11:22 PM Electronically Signed By: TAIWO GOTTI MD 02/18/24 1611 PATIENT NAME: DIONZEINAB NICOLÁS Electrocardiogram DATE OF : 61 PHYSICIAN: TAIWO GOTTI MD REPORT #: [id number] REPORT IS CONFIDENTIAL AND NOT TO BE RELEASED WITHOUT AUTHORIZATION
[2024-02-19] MEDS ORDERED: AMIODARONE HCL 180 MG in DEXTROSE 5% 96.4 ML IV ONE (01:16)
== END 2024-02-18 12:00 | disposition short-term general hospital (02) ==
LOC: ED 07:03
PROVIDERS: Family Medicine
DX: J81.1 Chronic pulmonary edema (principal); E87.20 Acidosis, unspecified; E11.22 Type 2 diabetes mellitus with diabetic chronic kidney disease; I12.0 Hypertensive chronic kidney disease with stage 5 chronic kidney disease or end stage renal disease; N18.5 Chronic kidney disease, stage 5; F17.200 Nicotine dependence, unspecified, uncomplicated; Z99.2 Dependence on renal dialysis; Z91.09 Other allergy status, other than to drugs and biological substances; Z79.899 Other long term (current) drug therapy
CPT/HCPCS: 36415; 71045; 80048; 80053; 82803; 83735; 83880; 84100; 84484; 85025; 85610; 93005; 93010; 96374; 96375; 99285-25; J0282; J1815; J1940

== ENCOUNTER 2024-05-22 16:44 | Emergency (ER) | payer MEDICARE, OTHER ==
[~2024-05-22] VITALS: Ht 167.6 cm; Wt 95.0 kg
[2024-05-22 17:00] LABS: BASOPHILS 0.6 % (0-2); EOSINOPHILS 0.2 % (0-6); HEMATOCRIT 39.7 % (35.0-50.0); HEMOGLOBIN 12.7 g/dL (12.0-18.0); LYMPHOCYTES 4.8 % (24-44); MCH 30.5 (27-36); MCHC 32.1 g/dl (30-36); MONOCYTES 4.3 % (0-12); NEUTROPHILS 90.1 % (39-80); PLATELET COUNT 198 K/uL (140-440); RBC 4.18 M/ul (4.3-5.7); RDW 15.7 (10.5-15.0)
[2024-05-22 17:19] LABS: ALBUMIN 3.1 g/dL (3.4-5.0); ALBUMIN/GLOBULIN RATIO 0.78 (1.1-2.4); ANION GAP 26.5 (7-21); BILIRUBIN, TOTAL 0.6 ng/dL (0.2-1.0); BUN/CREATININE RATIO 10.58 (6.0-28.6); CALCIUM 8.7 mg/dL (8.5-10.1); CREATININE, SERUM 12.94 mg/dL (0.55-1.02); MAGNESIUM 2.4 mg/dL (1.8-2.4); POTASSIUM 4.5 mmol/L (3.5-5.1); PROTEIN, TOTAL 7.1 g/dL (6.4-8.2)
[2024-05-22] MEDS ORDERED: ondansetron HCL 4 MG/2 ML VIAL IV ONE (17:30)
[2024-05-22] MEDS ORDERED: HYDROmorphone HCL 1 MG/ML SYR IV ONE (17:30)
[2024-05-22] MEDS ORDERED: SODIUM CHLORIDE 0.9% 500 ML IV PRN (17:30)
[2024-05-22 17:38] LABS: INFLUENZA B NAA NEGATIVE (NEGATIVE); RESPIRATORY SYNCYTIAL VIR NAA NEGATIVE (NEGATIVE)
[2024-05-22] MEDS ORDERED: hydrALAZINE HCL 20 MG/ML VIAL IV ONE ×2 (18:30→23:00)
[2024-05-22 19:04] LABS: BILIRUBIN, URINE NEGATIVE (negative); BLOOD/HGB, URINE NEGATIVE (Negative); KETONE, URINE TRACE (Negative); LEUK ESTERASE, URINE NEGATIVE (negative); NITRITE, URINE NEGATIVE (negative)
[2024-05-22 19:13] LABS: BACTERIA, URINE 2+ /hpf (negative); CASTS, URINE NONE SEEN \\lpf; COLLECTION TYPE, URINE CLEAN CATCH; CRYSTALS, URINE NONE SEEN (0-1+); EPITHELIAL CELLS, URINE SQUAMOUS 1+ /lpf (0-1+); RED BLOOD CELLS, URINE 0-1 /hpf (0-5); REFLEX CULTURE, URINE Yes (No)
[2024-05-22] MEDS ORDERED: CEFTRIAXONE/SODIUM CHLORIDE 1 GM/100 ML PIGGYBACK IV ONE (19:30)
[2024-05-22] MEDS ORDERED: DOXAZOSIN MESYLATE 4 MG TAB PO ONE (19:45)
[2024-05-22] MEDS ORDERED: METOPROLOL TARTRATE 50 MG TAB PO ONE (19:45)
[2024-05-22] MEDS ORDERED: AMLODIPINE BESYLATE 10 MG TAB PO ONE (19:45)
[2024-05-22] MEDS ORDERED: HYDROmorphone HCL 1 MG/ML SYR IV PRN (23:30)
[2024-05-22 23:57] VITALS: BP 155/68
--- NOTE | 2024-05-23 13:57 | EKG ---
[facility] [address] [facility] [place] [address] Signed Normal sinus rhythm Left axis deviation Moderate voltage criteria for LVH, may be normal variant ( R in aVL , [place] product ) ST \T\ T wave abnormality, consider lateral ischemia Prolonged QT Abnormal ECG When compared with ECG of 18-FEB-2024 07:11, Vent. rate has decreased BY 52 BPM QRS duration has decreased Borderline criteria for Anterior infarct are no longer present Borderline criteria for Anterolateral infarct are no longer present Confirmed by Bri Ceja MD ([id number]) on 05/23/2024 1:57:49 PM Electronically Signed By: BRI CEJA MD 05/23/24 1357 PATIENT NAME: ZEINAB ASHLEY Electrocardiogram DATE OF : 61 PHYSICIAN: BRI CEJA MD REPORT #: [id number] REPORT IS CONFIDENTIAL AND NOT TO BE RELEASED WITHOUT AUTHORIZATION
== END 2024-05-22 23:59 | disposition short-term general hospital (02) ==
LOC: ED 16:44
PROVIDERS: Emergency Medicine
DX: K85.90 Acute pancreatitis without necrosis or infection, unspecified (principal); N39.0 Urinary tract infection, site not specified; I12.0 Hypertensive chronic kidney disease with stage 5 chronic kidney disease or end stage renal disease; E11.22 Type 2 diabetes mellitus with diabetic chronic kidney disease; N18.6 End stage renal disease; E11.40 Type 2 diabetes mellitus with diabetic neuropathy, unspecified; F17.200 Nicotine dependence, unspecified, uncomplicated; Z99.2 Dependence on renal dialysis; Z88.8 Allergy status to other drugs, medicaments and biological substances; Z79.899 Other long term (current) drug therapy
CPT/HCPCS: 36415; 51701; 74176; 80053; 81001; 83690; 83735; 85025; 87088; 87502; 93005; 93010; 99285-25; J0360; J0696; J1170; J2405; J7040; U0002

== ENCOUNTER 2024-08-04 15:20 | Emergency (ER) | payer MEDICARE, OTHER ==
[~2024-08-04] VITALS: Ht 167.6 cm; Wt 93.0 kg
[2024-08-04 15:44] LABS: BASOPHILS 0.3 % (0-2); EOSINOPHILS 0.1 % (0-6); HEMATOCRIT 23.6 % (35.0-50.0); HEMOGLOBIN 7.7 g/dL (12.0-18.0); LYMPHOCYTES 2.5 % (24-44); MCH 33.4 (27-36); MCHC 32.8 g/dl (30-36); MONOCYTES 4.4 % (0-12); NEUTROPHILS 92.7 % (39-80); PLATELET COUNT 103 K/uL (140-440); RBC 2.31 M/ul (4.3-5.7); RDW 17.7 (10.5-15.0)
[2024-08-04 15:52] LABS: ALBUMIN 2.1 g/dL (3.4-5.0); ALBUMIN/GLOBULIN RATIO 0.58 (1.1-2.4); BILIRUBIN, TOTAL 0.7 ng/dL (0.2-1.0); BUN/CREATININE RATIO 4.47 (6.0-28.6); CALCIUM 7.9 mg/dL (8.5-10.1); CREATININE, SERUM 4.47 mg/dL (0.55-1.02); PROTEIN, TOTAL 5.7 g/dL (6.4-8.2)
[2024-08-04 15:58] LABS: LACTIC ACID, BLOOD 2.6 mmol/L (0.4-2.0)
[2024-08-04] MEDS ORDERED: SODIUM CHLORIDE 0.9% 1,000 ML IV PRN (16:15)
[2024-08-04] MEDS ORDERED: MIDODRINE HCL 5 MG TAB PO ONE (16:15)
[2024-08-04 16:40] LABS: INFLUENZA B NAA NEGATIVE (NEGATIVE); RESPIRATORY SYNCYTIAL VIR NAA NEGATIVE (NEGATIVE)
[2024-08-04] MEDS ORDERED: NOREPINEPHRINE BITARTRATE 250 ML IV SCH (17:00)
[2024-08-04] MEDS ORDERED: NOREPINEPHRINE BITARTRATE IV SCH (17:00)
[2024-08-04] MEDS ORDERED: CEFEPIME HCL/D5W 2 GM/100 ML PIGGYBACK IV ONE (17:15)
[2024-08-04 17:17] LABS: ABO O; RH POSITIVE
[2024-08-04 17:18] LABS: ANTIBODY SCREEN NEGATIVE; IS CROSSMATCH COMPATIBLE
[2024-08-04] MEDS ORDERED: ETOMIDATE 40 MG/20 ML VIAL IV ONE (17:30)
[2024-08-04] MEDS ORDERED: VANCOMYCIN HCL/D5W 1 GM/270 ML PIGGYBACK KIT IV ONE (17:30)
[2024-08-04 18:54] LABS: LACTIC ACID, BLOOD 1.5 mmol/L (0.4-2.0)
[2024-08-04 19:45] VITALS: BP 113/55
--- NOTE | 2024-08-05 19:43 | EKG ---
[facility] [address] [place] [address] Signed Normal sinus rhythm Left axis deviation Moderate voltage criteria for LVH, may be normal variant ( R in aVL , [place] product ) T wave abnormality, consider anterolateral ischemia Prolonged QT Abnormal ECG When compared with ECG of 22-MAY-2024 18:00, Vent. rate has increased BY 33 BPM T wave inversion now evident in Anterior leads QT has lengthened Confirmed by Bri Ceja MD ([id number]) on 08/05/2024 7:43:47 PM Electronically Signed By: BRI CEJA MD 08/05/241942 PATIENT NAME: ZEINAB ASHLEY Electrocardiogram DATE OF : 61 PHYSICIAN: BRI CEJA MD REPORT #: [id number] REPORT IS CONFIDENTIAL AND NOT TO BE RELEASED WITHOUT AUTHORIZATION
--- NOTE | 2024-08-05 19:45 | EKG ---
[facility] [address] [place] [address] Signed Atrial fibrillation with rapid ventricular response Minimal voltage criteria for LVH, may be normal variant ( [place] product ) ST \T\ T wave abnormality, consider inferolateral ischemia Abnormal ECG When compared with ECG of 04-AUG-2024 15:45, (Unconfirmed) Atrial fibrillation has replaced Sinus rhythm Vent. rate has increased BY 64 BPM QRS duration has increased T wave inversion less evident in Anterior leads Confirmed by Bri Ceja MD ([id number]) on 08/05/2024 7:45:19 PM Electronically Signed By: BRI CEJA MD 08/05/241944 PATIENT NAME: ZEINAB ASHLEY Electrocardiogram DATE OF : 61 PHYSICIAN: BRI CEJA MD REPORT #: [id number] REPORT IS CONFIDENTIAL AND NOT TO BE RELEASED WITHOUT AUTHORIZATION
--- NOTE | 2024-08-06 11:18 | EKG ---
[facility] [address] [place] [address] Signed Normal sinus rhythm Left anterior fascicular block Moderate voltage criteria for LVH, may be normal variant ( R in aVL , [place] product ) T wave abnormality, consider anterolateral ischemia Prolonged QT Abnormal ECG When compared with ECG of 04-AUG-2024 17:02, (Unconfirmed) Normal sinus rhythm has replaced Atrial fibrillation Confirmed by Linden Ceja MD ([id number]) on 08/06/2024 11:18:14 AM Electronically Signed By: LINDEN CEJA MD 08/06/24 1118 PATIENT NAME: ZEINAB ASHLEY Electrocardiogram DATE OF : 61 PHYSICIAN: LINDEN CEJA MD REPORT #: [id number] REPORT IS CONFIDENTIAL AND NOT TO BE RELEASED WITHOUT AUTHORIZATION
[2024-08-16] MEDS ORDERED: CALCIUM ACETAT667 M1 PO (20:18)
== END 2024-08-04 19:45 | disposition short-term general hospital (02) ==
LOC: ED 15:20
PROVIDERS: Emergency Medicine
DX: A41.9 Sepsis, unspecified organism (principal); I48.91 Unspecified atrial fibrillation; I12.0 Hypertensive chronic kidney disease with stage 5 chronic kidney disease or end stage renal disease; E11.22 Type 2 diabetes mellitus with diabetic chronic kidney disease; N18.6 End stage renal disease; Z99.2 Dependence on renal dialysis; E11.42 Type 2 diabetes mellitus with diabetic polyneuropathy; F17.200 Nicotine dependence, unspecified, uncomplicated; Z88.8 Allergy status to other drugs, medicaments and biological substances; Z79.899 Other long term (current) drug therapy
CPT/HCPCS: 36415; 36430; 51701; 71045; 80053; 83605; 85025; 86850; 86900; 86901; 86922; 87040; 87186; 87502; 92950; 93005; 93010; 99285-25; J0692; J3370; J7030; P9016; U0002

== ENCOUNTER 2024-08-16 19:34 | Emergency (ER) | payer MEDICARE, OTHER ==
[~2024-08-16] VITALS: Ht 167.6 cm; Wt 90.6 kg
[2024-08-16 20:11] LABS: BASOPHILS 1.1 % (0-2); EOSINOPHILS 0.5 % (0-6); HEMATOCRIT 26.5 % (35.0-50.0); HEMOGLOBIN 8.7 g/dL (12.0-18.0); LYMPHOCYTES 11.1 % (24-44); MCH 33.2 (27-36); MCHC 32.8 g/dl (30-36); MCV 101.1 fl (81-99); MONOCYTES 5.4 % (0-12); NEUTROPHILS 81.9 % (39-80); PLATELET COUNT 207 K/uL (140-440); RBC 2.62 M/ul (4.3-5.7)
[2024-08-16] MEDS ORDERED: METOPROLOL TARTRATE 5 MG/5 ML VIAL IV ONE (20:15)
[2024-08-16] MEDS ORDERED: AMIODARONE HCL200 MG PO (20:17)
[2024-08-16] MEDS ORDERED: CALCIUM ACETAT667 M1 NG (20:18)
[2024-08-16] MEDS ORDERED: FUROSEMIDE80 MG PO (20:18)
[2024-08-16 20:24] LABS: PARTIAL THROMBOPLASTIN TIME 32.1 Sec (22.9-41.3)
[2024-08-16 20:25] LABS: INR 1.1 (0.80-1.30); PROTIME 13.5 Sec (11.2-14.2)
[2024-08-16 20:28] LABS: ALBUMIN 2.5 g/dL (3.4-5.0); ALBUMIN/GLOBULIN RATIO 0.58 (1.1-2.4); ANION GAP 19.3 (7-21); BILIRUBIN, TOTAL 0.4 ng/dL (0.2-1.0); BUN/CREATININE RATIO 6.59 (6.0-28.6); CALCIUM 8.4 mg/dL (8.5-10.1); CREATININE, SERUM 6.22 mg/dL (0.55-1.02); MAGNESIUM 2.5 mg/dL (1.8-2.4); POTASSIUM 5.3 mmol/L (3.5-5.1); PROTEIN, TOTAL 6.8 g/dL (6.4-8.2)
[2024-08-16] MEDS ORDERED: Methylnaltrexone Bromide 12 MG/0.6 ML VIAL SUB-Q ONE (20:30)
[2024-08-16 20:39] LABS: PHOSPHORUS, INORGANIC 6.6 mg/dL (2.5-4.9); TSH, 3RD GENERATION 1.706 uIU/mL (0.358-3.740)
[2024-08-16] MEDS ORDERED: CALCIUM CHLORIDE 1,000 MG/10 ML SYR IV ONE (20:45)
[2024-08-16] MEDS ORDERED: Insulin Regular, Human 100 UNIT/ML ML IV ONE (20:45)
[2024-08-16] MEDS ORDERED: DEXTROSE 50% 50 ML SYR IV ONE (20:45)
[2024-08-16 20:58] LABS: INFLUENZA B NAA NEGATIVE (NEGATIVE); RESPIRATORY SYNCYTIAL VIR NAA NEGATIVE (NEGATIVE)
[2024-08-16] MEDS ORDERED: CALCIUM GLUCONATE 2,000 MG in DEXTROSE 5% 100 ML IV SCH (22:00)
[2024-08-16] MEDS ORDERED: KETOROLAC TROMETHAMINE 30 MG/ML VIAL IV ONE (23:00)
[2024-08-17] MEDS ORDERED: FUROSEMIDE 100 MG/10 ML VIAL IV ONE (02:15)
[2024-08-17] MEDS ORDERED: POLYETHYLENE GLYCOL 3350 1 PACKET PO ONE (02:15)
[2024-08-17] MEDS ORDERED: CALCIUM ACETATE 667 MG CAPSULE PO ONE (02:45)
[2024-08-17] MEDS ORDERED: AMIODARONE HCL 200 MG TAB PO ONE (04:15)
[2024-08-17] MEDS ORDERED: LABETALOL HCL 20 MG/4 ML VIAL IV ONE (05:30)
[2024-08-17 05:57] LABS: ANION GAP 17.4 (7-21); BUN/CREATININE RATIO 6.67 (6.0-28.6); CALCIUM 9.2 mg/dL (8.5-10.1); CREATININE, SERUM 6.59 mg/dL (0.55-1.02); MAGNESIUM 2.7 mg/dL (1.8-2.4); PHOSPHORUS, INORGANIC 7.9 mg/dL (2.5-4.9); POTASSIUM 5.4 mmol/L (3.5-5.1)
[2024-08-17] MEDS ORDERED: COLACE100 MG PO (06:29)
[2024-08-17] MEDS ORDERED: SODIUM POLYSTYRENE SULFONATE 15 GM/60 ML UDC PO ONE (06:30)
[2024-08-17] MEDS ORDERED: AMIODARONE HCL 200 MG TAB ONE (06:31)
[2024-08-17 07:00] VITALS: BP 165/67
--- NOTE | 2024-08-20 20:15 | EKG ---
[facility] [address] [facility] [place] [address] Signed Atrial flutter with variable AV block Left axis deviation Incomplete left bundle branch block Left ventricular hypertrophy with repolarization abnormality ( R in aVL , [place] product ) Abnormal ECG When compared with ECG of 04-Aug-2024 Atrial flutter with variable AV block has replaced Normal sinus rhythm Confirmed by Linden Ceja MD ([id number]) on 08/20/2024 8:15:50 PM Electronically Signed By: LINDEN CEJA MD 08/20/242014 PATIENT NAME: ZEINAB ASHLEY Electrocardiogram DATE OF : 61 PHYSICIAN: LINDEN CEJA MD REPORT #: [id number] REPORT IS CONFIDENTIAL AND NOT TO BE RELEASED WITHOUT AUTHORIZATION
--- NOTE | 2024-08-20 20:16 | EKG ---
[facility] [address] [place] [address] Signed Sinus rhythm with marked sinus arrhythmia with premature supraventricular complexes Left anterior fascicular block Left ventricular hypertrophy with repolarization abnormality ( R in aVL , [place] product ) Prolonged QT Abnormal ECG When compared with ECG of 16-AUG-2024 20:06, (Unconfirmed) Sinus rhythm has replaced Atrial flutter Vent. rate has decreased BY 74 BPM Incomplete left bundle branch block is no longer present T wave inversion now evident in Anterior leads Confirmed by Bri Ceja MD ([id number]) on 08/20/2024 8:16:24 PM Electronically Signed By: BRI CEJA MD 08/20/242015 PATIENT NAME: ZEINAB ASHLEY Electrocardiogram DATE OF : 61 PHYSICIAN: BRI CEJA MD REPORT #: [id number] REPORT IS CONFIDENTIAL AND NOT TO BE RELEASED WITHOUT AUTHORIZATION
== END 2024-08-17 07:00 | disposition home or self-care (01) ==
LOC: ED 19:34
PROVIDERS: Internal Medicine
DX: K59.00 Constipation, unspecified (principal); I12.0 Hypertensive chronic kidney disease with stage 5 chronic kidney disease or end stage renal disease; E11.22 Type 2 diabetes mellitus with diabetic chronic kidney disease; N18.6 End stage renal disease; E11.40 Type 2 diabetes mellitus with diabetic neuropathy, unspecified; F17.200 Nicotine dependence, unspecified, uncomplicated; Z99.2 Dependence on renal dialysis; Z91.048 Other nonmedicinal substance allergy status; Z79.899 Other long term (current) drug therapy
CPT/HCPCS: 36415; 71045; 74018; 74177; 80048; 80053; 83690; 83735; 83880; 84100; 84443; 84484; 85025; 85610; 85730; 87502; 93005; 93010; 96375; 99284-25; J1815; J1885; J1940; J2212; Q9967; U0002

== ENCOUNTER 2024-08-28 16:29 | Inpatient (IN) | payer MEDICARE, OTHER ==
[~2024-08-28] VITALS: Ht 167.6 cm; Wt 86.9 kg
[~2024-08-28 16:29] MED LIST changes: +AMIODARONE HCL200 MG PO; +CALCIUM ACETAT667 M1 PO; +COLACE100 MG PO; +FUROSEMIDE80 MG PO
[2024-08-28] MEDS ORDERED: dilTIAZem HCL 25 MG/5 ML VIAL IV ONE (16:45)
[2024-08-28 16:54] LABS: BASOPHILS 0.5 % (0-2); EOSINOPHILS 0.3 % (0-6); HEMATOCRIT 26.3 % (35.0-50.0); HEMOGLOBIN 8.9 g/dL (12.0-18.0); LYMPHOCYTES 4.7 % (24-44); MCH 33.5 (27-36); MCHC 33.6 g/dl (30-36); MCV 99.4 fl (81-99); MONOCYTES 6.9 % (0-12); NEUTROPHILS 87.6 % (39-80); PLATELET COUNT 190 K/uL (140-440); RBC 2.65 M/ul (4.3-5.7); RDW 16.5 (10.5-15.0)
[2024-08-28 17:11] LABS: ALBUMIN 2.1 g/dL (3.4-5.0); ALBUMIN/GLOBULIN RATIO 0.49 (1.1-2.4); ALKALINE PHOSPHATASE 115 U/L (46-116); ANION GAP 11.8 (7-21); AST (SGOT) 5 U/L (15-37); BILIRUBIN, TOTAL 0.3 ng/dL (0.2-1.0); BUN/CREATININE RATIO 4.48 (6.0-28.6); CALCIUM 8.5 mg/dL (8.5-10.1); CARBON DIOXIDE 32 mmol/L (21-32); CHLORIDE 97 mmol/L (98-107); CREATININE, SERUM 2.23 mg/dL (0.55-1.02); GLOMERULAR FILTRATION RATE,EST 24 mL/min (>60); POTASSIUM 3.8 mmol/L (3.5-5.1); PROTEIN, TOTAL 6.4 g/dL (6.4-8.2); UREA NITROGEN 10 mg/dL (7-18)
[2024-08-28] MEDS ORDERED: SODIUM CHLORIDE 0.9% 250 ML IV PRN (17:15)
[2024-08-28 17:19] LABS: ALT (SGPT) <6 U/L (14-59)
[2024-08-28] MEDS ORDERED: bisacodyL 10 MG SUPP PR PRN (19:45)
[2024-08-28] MEDS ORDERED: ondansetron HCL 4 MG/2 ML VIAL IV PRN (19:45)
[2024-08-28] MEDS ORDERED: ACETAMINOPHEN 325 MG TAB PO PRN (19:45)
[2024-08-28] MEDS ORDERED: DILTIAZEM HCl/D5W 125 ML IV SCH (19:45)
[2024-08-28] MEDS ORDERED: ACETAMINOPHEN500 MG PO (20:21)
[2024-08-28] MEDS ORDERED: TUMS200 MG PO (20:27)
[2024-08-28] MEDS ORDERED: KLOR-CON M2020 MEQ PO (20:29)
[2024-08-28] MEDS ORDERED: CARDURA4 MG PO (20:29)
[2024-08-28] MEDS ORDERED: CEFAZOLIN2 GM/50 M1 IV (20:31)
[2024-08-28] MEDS ORDERED: CALCITRIOL0.5 MCG PO (20:31)
[2024-08-28] MEDS ORDERED: CATAPRES-TTS 11 EACH TD (20:32)
[2024-08-28] MEDS ORDERED: BENADRYL25 MG PO (20:32)
[2024-08-28] MEDS ORDERED: DIPHENHYDR50 MG/1 M2 IV (20:33)
[2024-08-28] MEDS ORDERED: LOPERAMIDE2 MG PO (20:34)
[2024-08-28] MEDS ORDERED: MIRCERA30 MCG/0.3 IV (20:35)
[2024-08-28] MEDS ORDERED: NITROSTAT0.4 MG SL (20:35)
[2024-08-28] MEDS ORDERED: ONDANSETRON IV (20:36)
[2024-08-28] MEDS ORDERED: VENOFER50 MG/2.5 IV (20:36)
[2024-08-28] MEDS ORDERED: MELATONIN 3 MG TAB PO PRN (21:00)
[2024-08-28] MEDS ORDERED: HEParin SOD (PORCINE) 5,000 UNIT/ML SDV SUB-Q SCH (21:00)
[2024-08-28 21:54] VITALS: BP 199/72
[2024-08-28 22:07] VITALS: BP 128/84
[2024-08-28 22:12] LABS: LACTIC ACID, BLOOD 0.6 mmol/L (0.4-2.0)
[2024-08-28 22:33] VITALS: BP 148/82
[2024-08-28] MEDS ORDERED: AMIODARONE HCL 200 MG TAB PO SCH (22:35)
[2024-08-28] MEDS ORDERED: LACTATED RINGER'S 1,000 ML IV SCH (22:45)
[2024-08-28 22:51] VITALS: BP 136/91
[2024-08-28 23:54] VITALS: BP 113/87
[2024-08-29] VITALS (12 sets, daily range): BP systolic 119–172; BP diastolic 59–125
[2024-08-29 05:40] LABS: BASOPHILS 0.5 % (0-2); EOSINOPHILS 0.5 % (0-6); HEMATOCRIT 26.8 % (35.0-50.0); HEMOGLOBIN 8.9 g/dL (12.0-18.0); LYMPHOCYTES 8.7 % (24-44); MCH 33.4 (27-36); MCHC 33.2 g/dl (30-36); MCV 100.5 fl (81-99); MONOCYTES 7.3 % (0-12); PLATELET COUNT 183 K/uL (140-440); RBC 2.66 M/ul (4.3-5.7); RDW 16.8 (10.5-15.0)
[2024-08-29 05:56] LABS: ANION GAP 11.4 (7-21); BUN/CREATININE RATIO 5.16 (6.0-28.6); CALCIUM 8.8 mg/dL (8.5-10.1); CREATININE, SERUM 3.1 mg/dL (0.55-1.02); MAGNESIUM 2.1 mg/dL (1.8-2.4); PHOSPHORUS, INORGANIC 4.1 mg/dL (2.5-4.9); POTASSIUM 4.4 mmol/L (3.5-5.1)
[2024-08-29] MEDS ORDERED: AMLODIPINE BESYLATE 10 MG TAB PO SCH (09:00)
[2024-08-29] MEDS ORDERED: FUROSEMIDE 40 MG TAB PO SCH (09:00)
[2024-08-29] MEDS ORDERED: METOPROLOL SUCCINATE 50 MG TABCR PO SCH (09:00)
[2024-08-29] MEDS ORDERED: MIRALAX119 GM PO (09:53)
[2024-08-29] MEDS ORDERED: FISH OIL 1,0001 EACH PO (09:54)
[2024-08-29] MEDS ORDERED: CALCITRIOL0.25 MCG PO (09:56)
[2024-08-29] MEDS ORDERED: PROCRIT20000 UNIT INJ (10:00)
[2024-08-29] MEDS ORDERED: PHARMACY RENAL DOSE ADJUSTMENT 1 DOSE MISC PO SCH (12:00)
--- NOTE | 2024-08-30 20:31 | EKG ---
[facility] [address] [facility] [place], [place] [address] Signed Atrial fibrillation with rapid ventricular response Nonspecific intraventricular conduction delay Minimal voltage criteria for LVH, may be normal variant ( [place] product ) ST \T\ T wave abnormality, consider lateral ischemia Abnormal ECG No previous ECGs available Confirmed by Niraj Slater DO ([id number]) on 08/30/2024 8:31:02 PM Electronically Signed By: NIRAJ SLATER DO 08/30/242030 PATIENT NAME: ZEINAB ASHLEY NICOLÁS Electrocardiogram DATE OF : 61 PHYSICIAN: NIRAJ SLATER DO REPORT #: [id number] REPORT IS CONFIDENTIAL AND NOT TO BE RELEASED WITHOUT AUTHORIZATION
== END 2024-08-29 11:12 | disposition home or self-care (01) | DRG 308 ==
LOC: ED 16:29 → CCU 19:43
PROVIDERS: Emergency Medicine; ADMIT Student in an Organized Health Care Education/Training Program; ATTEND Student in an Organized Health Care Education/Training Program
DX: I48.20 Chronic atrial fibrillation, unspecified (principal); N18.6 End stage renal disease; M96.830 Postprocedural hemorrhage of a musculoskeletal structure following a musculoskeletal system procedure; E11.22 Type 2 diabetes mellitus with diabetic chronic kidney disease; I12.9 Hypertensive chronic kidney disease with stage 1 through stage 4 chronic kidney disease, or unspecified chronic kidney disease; E11.40 Type 2 diabetes mellitus with diabetic neuropathy, unspecified; F41.9 Anxiety disorder, unspecified; F17.210 Nicotine dependence, cigarettes, uncomplicated; Z91.048 Other nonmedicinal substance allergy status; Z99.2 Dependence on renal dialysis; Z79.899 Other long term (current) drug therapy
CPT/HCPCS: 36415; 73700; 80048; 80053; 83605; 83735; 84100; 85025; 85651; 93005; 93010; 96374; 99285-25; A9270; J1644; J7121

== ENCOUNTER 2024-09-01 13:59 | Emergency (ER) | payer MEDICARE, OTHER ==
[~2024-09-01] VITALS: Ht 167.6 cm; Wt 93.9 kg
[~2024-09-01 13:59] MED LIST changes: +ACETAMINOPHEN500 MG PO; +BENADRYL25 MG PO; +CALCITRIOL0.25 MCG PO; +CALCITRIOL0.5 MCG PO; +CARDURA4 MG PO; +CATAPRES-TTS 11 EACH TD; +CEFAZOLIN2 GM/50 M1 IV; +DIPHENHYDR50 MG/1 M2 IV; +FISH OIL 1,0001 EACH PO; +KLOR-CON M2020 MEQ PO; +LOPERAMIDE2 MG PO; +MIRALAX119 GM PO; +MIRCERA30 MCG/0.3 IV; +NITROSTAT0.4 MG SL; +ONDANSETRON IV; +PROCRIT20000 UNIT INJ; +TUMS200 MG PO; +VENOFER50 MG/2.5 IV
[2024-09-01 14:14] LABS: HEMATOCRIT 23.9 % (35.0-50.0); HEMOGLOBIN 7.7 g/dL (12.0-18.0); MCH 32.3 (27-36); MCHC 32.3 g/dl (30-36); PLATELET COUNT 214 K/uL (140-440); RBC 2.39 M/ul (4.3-5.7); RDW 16.7 (10.5-15.0)
[2024-09-01] MEDS ORDERED: dilTIAZem HCL 25 MG/5 ML VIAL IV ONE (14:15)
[2024-09-01] MEDS ORDERED: DILTIAZEM HCl/D5W 125 ML IV SCH (14:15)
[2024-09-01 14:28] LABS: BANDS, MANUAL DIFF 1; BASOPHILS, MANUAL DIFF 1; LYMPHOCYTES, MANUAL DIFF 2; MONOCYTES, MANUAL DIFF 5; NEUTROPHILS, MANUAL DIFF 91
[2024-09-01 14:31] LABS: INR 1.25 (0.80-1.30); PARTIAL THROMBOPLASTIN TIME 38.5 Sec (22.9-41.3); PROTIME 15.6 Sec (11.2-14.2)
[2024-09-01 14:41] LABS: ALBUMIN 1.9 g/dL (3.4-5.0); ALBUMIN/GLOBULIN RATIO 0.44 (1.1-2.4); ANION GAP 11.4 (7-21); BILIRUBIN, TOTAL 0.3 ng/dL (0.2-1.0); BUN/CREATININE RATIO 5.95 (6.0-28.6); CALCIUM 8.7 mg/dL (8.5-10.1); CREATININE, SERUM 3.86 mg/dL (0.55-1.02); POTASSIUM 4.4 mmol/L (3.5-5.1); PROTEIN, TOTAL 6.2 g/dL (6.4-8.2)
[2024-09-01] MEDS ORDERED: ACETAMINOPHEN 500 MG TAB PO ONE (15:00)
[2024-09-01] MEDS ORDERED: MAGNESIUM SULFATE 2 GM/50 ML BAG IV ONE (17:45)
[2024-09-01] MEDS ORDERED: VANCOMYCIN HCL/D5W 1 GM/270 ML PIGGYBACK KIT IV ONE (17:45)
[2024-09-01] MEDS ORDERED: CEFEPIME HCL/D5W 2 GM/100 ML PIGGYBACK IV ONE (17:45)
[2024-09-01 17:58] LABS: PARTIAL THROMBOPLASTIN TIME 40.1 Sec (22.9-41.3)
[2024-09-01 17:59] LABS: INR 1.28 (0.80-1.30); PROTIME 15.9 Sec (11.2-14.2)
[2024-09-01 18:00] LABS: LACTIC ACID, BLOOD 0.9 mmol/L (0.4-2.0)
[2024-09-01 19:05] VITALS: BP 119/65
--- NOTE | 2024-09-03 18:27 | EKG ---
[facility] [address] [place] [address] Signed Atrial fibrillation with rapid ventricular response with premature ventricular or aberrantly conducted complexes Left axis deviation Nonspecific intraventricular block Minimal voltage criteria for LVH, may be normal variant ( [place] product ) T wave abnormality, consider lateral ischemia Abnormal ECG When compared with ECG of 28-AUG-2024 16:44, Nonspecific T wave abnormality no longer evident in Inferior leads T wave inversion less evident in Lateral leads Confirmed by Linden Ceja MD ([id number]) on 09/03/2024 6:27:21 PM Electronically Signed By: LINDEN CEJA MD 09/03/24 1827 PATIENT NAME: ZEINAB ASHLEY Electrocardiogram DATE OF : 61 PHYSICIAN: LINDEN CEJA MD REPORT #: [id number] REPORT IS CONFIDENTIAL AND NOT TO BE RELEASED WITHOUT AUTHORIZATION
== END 2024-09-01 19:05 | disposition short-term general hospital (02) ==
LOC: ED 13:59
PROVIDERS: Emergency Medicine
DX: R53.1 Weakness (principal); I48.91 Unspecified atrial fibrillation; I12.0 Hypertensive chronic kidney disease with stage 5 chronic kidney disease or end stage renal disease; E11.22 Type 2 diabetes mellitus with diabetic chronic kidney disease; N18.6 End stage renal disease; L08.9 Local infection of the skin and subcutaneous tissue, unspecified; F17.200 Nicotine dependence, unspecified, uncomplicated; Z99.2 Dependence on renal dialysis; Z88.8 Allergy status to other drugs, medicaments and biological substances; Z79.899 Other long term (current) drug therapy
CPT/HCPCS: 36415; 71045; 80053; 83605; 83735; 83880; 84484; 85025; 85610; 85730; 93005; 93010; 96365; 96368; 96375; 99285-25; A9270; J0692; J3370; J3475

== ENCOUNTER 2024-10-31 21:49 | Emergency (ER) | payer MEDICARE, OTHER ==
[~2024-10-31] VITALS: Ht 165.1 cm; Wt 116.6 kg
[2024-10-31] MEDS ORDERED: LACTATED RINGER'S 1,000 ML IV ONE (22:00)
[2024-10-31 22:14] LABS: BASOPHILS 0.7 % (0-2); HEMATOCRIT 21.8 % (35.0-50.0); HEMOGLOBIN 7.2 g/dL (12.0-18.0); LYMPHOCYTES 16.7 % (24-44); MCH 30.7 (27-36); MCHC 33.1 g/dl (30-36); MCV 92.9 fl (81-99); MONOCYTES 5.8 % (0-12); NEUTROPHILS 75.8 % (39-80); PLATELET COUNT 197 K/uL (140-440); RBC 2.35 M/ul (4.3-5.7); RDW 17.2 (10.5-15.0)
[2024-10-31 22:30] LABS: ALBUMIN 1.3 g/dL (3.4-5.0); ALBUMIN/GLOBULIN RATIO 0.31 (1.1-2.4); ANION GAP 4.3 (7-21); BILIRUBIN, TOTAL 0.3 mg/dL (0.2-1.0); BUN/CREATININE RATIO 8.62 (6.0-28.6); CALCIUM 10.6 mg/dL (8.5-10.1); CREATININE, SERUM 3.48 mg/dL (0.55-1.02); POTASSIUM 3.3 mmol/L (3.5-5.1); PROTEIN, TOTAL 5.5 g/dL (6.4-8.2)
[2024-10-31] MEDS ORDERED: LACTATED RINGER'S 500 ML IV SCH (22:30)
[2024-10-31] MEDS ORDERED: NOREPINEPHRINE BITARTRATE 250 ML IV SCH (22:45)
[2024-10-31] MEDS ORDERED: HUMAN PROTHROMBIN COMPLX(PCC) 500 UNIT/20 ML VIAL IV ONE (22:45)
[2024-10-31 22:52] LABS: ABO O; ANTIBODY SCREEN NEGATIVE; RH POSITIVE
[2024-10-31 22:53] LABS: IS CROSSMATCH COMPATIBLE
[2024-10-31 23:07] LABS: INR 2.12 (0.80-1.30); PARTIAL THROMBOPLASTIN TIME 52.6 Sec (22.9-41.3); PROTIME 23.8 Sec (11.2-14.2)
[2024-10-31] MEDS ORDERED: PIPERACILLIN/TAZOBACTAM 3.375 GM in SODIUM CHLORIDE 0.9% 100 ML IV ONE (23:15)
[2024-10-31 23:18] LABS: IS CROSSMATCH COMPATIBLE
[2024-10-31] MEDS ORDERED: PIPERACILLIN/TAZOBACTAM 3.375 GM VIAL ONE (23:27)
[2024-11-01 00:29] LABS: INR 1.62 (0.80-1.30); PROTIME 19.2 Sec (11.2-14.2)
[2024-11-01] MEDS ORDERED: HUMAN PROTHROMBIN COMPLX(PCC) 500 UNIT/20 ML VIAL IV ONE (01:00)
[2024-11-01 02:07] LABS: EOSINOPHILS 0.8 % (0-6); HEMATOCRIT 26.5 % (35.0-50.0); HEMOGLOBIN 8.9 g/dL (12.0-18.0); LYMPHOCYTES 14.6 % (24-44); MCH 30.5 (27-36); MCHC 33.5 g/dl (30-36); MCV 91.1 fl (81-99); NEUTROPHILS 77.6 % (39-80); PLATELET COUNT 190 K/uL (140-440); RDW 17.6 (10.5-15.0)
[2024-11-01 03:10] VITALS: BP 143/69
== END 2024-11-01 03:10 | disposition short-term general hospital (02) ==
LOC: ED 21:49
PROVIDERS: Family Medicine
DX: K62.5 Hemorrhage of anus and rectum (principal); K52.89 Other specified noninfective gastroenteritis and colitis; E11.22 Type 2 diabetes mellitus with diabetic chronic kidney disease; I12.0 Hypertensive chronic kidney disease with stage 5 chronic kidney disease or end stage renal disease; N18.6 End stage renal disease; I48.91 Unspecified atrial fibrillation; E11.40 Type 2 diabetes mellitus with diabetic neuropathy, unspecified; Z99.2 Dependence on renal dialysis; Z89.431 Acquired absence of right foot; Z88.8 Allergy status to other drugs, medicaments and biological substances; F17.200 Nicotine dependence, unspecified, uncomplicated; Z79.01 Long term (current) use of anticoagulants; Z79.899 Other long term (current) drug therapy
CPT/HCPCS: 36415; 36430; 71045; 74176; 80053; 83735; 85025; 85610; 85730; 86850; 86900; 86901; 86922; 87045; 87046; 96365; 96375; 96376; 99285-25; J2543; J7168; P9016

== ENCOUNTER 2025-01-05 14:17 | Emergency (ER) | payer MEDICARE, OTHER ==
[~2025-01-05] VITALS: Ht 165.1 cm; Wt 89.5 kg
--- OUTSIDE RECORDS SUMMARY | ~2025-01-05 | XMS | Continuity of Care Document ---
Demographics + + + | Address | [address] | | | [place] [address] | + + + | Preferred Language | Unknown | + + + | Marital Status | Unknown | + + + | Anabaptism Affiliation | Unknown | + + + | Race | White | + + + | Ethnic Group | Unknown | + + + Author + + + | Author | [facility] | + + + | Organization | [facility] | + + + | Address | [address] | | | [place] [address] | + + + | Phone | | + + + Care Team Providers + + + + | Care Nutrition Aides Teacher Name | Role | Phone | + + + + Unavailable | Unavailable | + + + + Allergies No information. Encounters No information. Functional Status No information. Immunizations No information. Medications No information. Problems No information. Procedures No information. Results/Labs +--------+--------+ +---------+--------+---------+ | test | date | facility | value | unit | notes | +--------+--------+ +---------+--------+---------+ + + | Result panel 1 | + + + + + +--------+ + + | INR.PPP.QN | 2024-11-10 | [facility] | 1.3 | (missing) | Coumadin: | | (Jul) | 22:41 | [facility] | | | 2.0 - 3.0 | | | | Medical | | | Heart Valve: | | | | Center | | | 2.5 - 3.5 | + + + +--------+ + + | INR.PPP.QN | 2024-11-10 | [facility] | 16.8 | seconds | (missing) | | (Jul) | 22:41 | [facility] | | | | | | | Medical | | | | | | | Center | | | | + + + +--------+ + + | APTT.PPP.QN | 2024-11-10 | [facility] | 41.3 | seconds | Unfractionat | | (Jul) | 22:41 | [facility] | | | ed Heparin | | | | Medical | | | Therapeutic | | | | Center | | | Ranges: Low | | | | | | | Dose: 65 - | | | | | | | 85 seconds | | | | | | | High Dose: | | | | | | | 65 - 100 | | | | | | | seconds | + + + +--------+ + + + + | Result panel 2 | + + + + + +---------+--------+ + | | 2024-11-10 | [facility] | 12.0 | fl | (missing) | | MPV.BLD.QN.A | 22:42 | [facility] | | | | | [facility] [place] | | [facility] | | | | | | | Center | | | | + + + +---------+--------+ + | | 2024-11-10 | [facility] | 17.5 | % | (missing) | | MPV.BLD.QN.A | 22:42 | [facility] | | | | | [facility] [place] | | [facility] | | | | | | | Center | | | | + + + +---------+--------+ + | | 2024-11-10 | [facility] | 199 | k/ul | (missing) | | MPV.BLD.QN.A | 22:42 | [facility] | | | | | [facility] | | [facility] | | | | | | | Center | | | | + + + +---------+--------+ + | | 2024-11-10 | [facility] | 21.10 | k/ul | (missing) | | MPV.BLD.QN.A | 22:42 | [facility] | | | | | [facility] | | [facility] | | | | | | | Center | | | | + + + +---------+--------+ + | | 2024-11-10 | [facility] | 28.7 | % | (missing) | | MPV.BLD.QN.A | 22:42 | [facility] | | | | | [facility] | | [facility] | | | | | | | Center | | | | + + + +---------+--------+ + | | 2024-11-10 | [facility] | 29.6 | pg | (missing) | | MPV.BLD.QN.A | 22:42 | [facility] | | | | | [facility] [place] | | [facility] | | | | | | | Center | | | | + + + +---------+--------+ + | | 2024-11-10 | [facility] | 3.07 | m/ul | (missing) | | MPV.BLD.QN.A | 22:42 | [facility] | | | | | [facility] [place] | | [facility] | | | | | | | Center | | | | + + + +---------+--------+ + | | 2024-11-10 | [facility] | 31.7 | g/dl | (missing) | | MPV.BLD.QN.A | 22:42 | [facility] | | | | | [facility] [place] | | [facility] | | | | | | | Center | | | | + + + +---------+--------+ + | | 2024-11-10 | [facility] | 59.5 | fl | (missing) | | MPV.BLD.QN.A | 22:42 | [facility] | | | | | [facility] [place] | | [facility] | | | | | | | Center | | | | + + + +---------+--------+ + | | 2024-11-10 | [facility] | 9.1 | g/dl | (missing) | | MPV.BLD.QN.A | 22:42 | [facility] | | | | | [facility] [place] | | [facility] | | | | | | | Center | | | | + + + +---------+--------+ + | | 2024-11-10 | [facility] | 93.5 | fl | (missing) | | MPV.BLD.QN.A | 22:42 | [facility] | | | | | [facility] [place] | | [facility] | | | | | | | Center | | | | + + + +---------+--------+ + + + | Result panel 3 | + + + + + +-------+ + + | | 2024-11-10 | [facility] | 2.0 | mmol/l | (missing) | | LACTATE.BLD. | 22:43 | [facility] | | | | | QN | | Medical | | | | | | | Center | | | | + + + +-------+ + + + + | Result panel 4 | + + + + + +-------+---------+ + | POC | 2024-11-10 | [facility] | 197 | mg/dl | (missing) | | GLUCOSE.BLD. | 22:47 | [facility] | | | | | QN (MG/DL) | | Medical | | | | | | | Center | | | | + + + +-------+---------+ + + + | Result panel 5 | + + + + + +-------+ + + | EGFR | 2024-11-10 | [facility] | <7 | u/l | (missing) | | ML/MIN/1.73 | 23:00 | [facility] | | | | | SQ | | Medical | | | | | M.PREDICTED | | Center | | | | + + + +-------+ + + | EGFR | 2024-11-10 | [facility] | <8 | u/l | (missing) | | ML/MIN/1.73 | 23:00 | [facility] | | | | | SQ | | Medical | | | | | M.PREDICTED | | Center | | | | + + + +-------+ + + | EGFR | 2024-11-10 | [facility] | 0.4 | (missing) | (missing) | | ML/MIN/1.73 | 23:00 | [facility] | | | | | SQ | | Medical | | | | | M.PREDICTED | | Center | | | | + + + +-------+ + + | EGFR | 2024-11-10 | [facility] | 0.4 | mg/dl | (missing) | | ML/MIN/1.73 | 23:00 | [facility] | | | | | SQ | | Medical | | | | | M.PREDICTED | | Center | | | | + + + +-------+ + + | EGFR | 2024-11-10 | [facility] | 1.7 | g/dl | (missing) | | ML/MIN/1.73 | 23:00 | [facility] | | | | | SQ | | Medical | | | | | M.PREDICTED | | Center | | | | + + + +-------+ + + | EGFR | 2024-11-10 | [facility] | 10 | mmol/l | (missing) | | ML/MIN/1.73 | 23:00 | [facility] | | | | | SQ | | Medical | | | | | M.PREDICTED | | Center | | | | + + + +-------+ + + | EGFR | 2024-11-10 | [facility] | 104 | u/l | (missing) | | ML/MIN/1.73 | 23:00 | [facility] | | | | | SQ | | Medical | | | | | M.PREDICTED | | Center | | | | + + + +-------+ + + | EGFR | 2024-11-10 | [facility] | 13 | | GFR value | | ML/MIN/1.73 | 23:00 | [facility] | | ml/min/1.73m | was | | SQ | | Medical | | 2 | calculated | | M.PREDICTED | | Center | | | using a new | | | | | | | GFR equation | | | | | | | effective | | | | | | | since | | | | | | | 09/16/21. | | | | | | | This is a | | | | | | | recommendati | | | | | | | on of the | | | | | | | [place] | | | | | | | Society of | | | | | | | Nephrology | | | | | | | and National | | | | | | | Kidney | | | | | | | Foundation. | | | | | | | Clinical | | | | | | | practice | | | | | | | guidelines | | | | | | | suggest the | | | | | | | use of serum | | | | | | | cystatin C | | | | | | | as a | | | | | | | confirmatory | | | | | | | test for | | | | | | | eGFR 45-59 | | | | | | | ml/min/1.73m | | | | | | | 2 in adults | | | | | | | who do not | | | | | | | have markers | | | | | | | of kidney | | | | | | | disease; | | | | | | | eGFR may be | | | | | | | less | | | | | | | accurate in | | | | | | | this range. | + + + +-------+ + + | EGFR | 2024-11-10 | [facility] | 131 | mmol/l | (missing) | | ML/MIN/1.73 | 23:00 | [facility] | | | | | SQ | | Medical | | | | | M.PREDICTED | | Center | | | | + + + +-------+ + + | EGFR | 2024-11-10 | [facility] | 2.9 | mmol/l | (missing) | | ML/MIN/1.73 | 23:00 | [facility] | | | | | SQ | | Medical | | | | | M.PREDICTED | | Center | | | | + + + +-------+ + + | EGFR | 2024-11-10 | [facility] | 204 | mg/dl | | | ML/MIN/1.73 | 23:00 | [facility] | | | | | SQ | | Medical | | | | | M.PREDICTED | | Center | | | | + + + +-------+ + + Social History +--------+ + + | date | description | facility | +--------+ + + Vital Signs No information."
[2025-01-05] MEDS ORDERED: CEFTRIAXONE SODIUM 2 GM in SODIUM CHLORIDE 0.9% 100 ML IV ONE (15:00)
[2025-01-05] MEDS ORDERED: ondansetron HCL 4 MG/2 ML VIAL ONE (15:02)
[2025-01-05 15:04] LABS: BASOPHILS 0.9 % (0-2); EOSINOPHILS 0.4 % (0-6); HEMATOCRIT 27.1 % (35.0-50.0); HEMOGLOBIN 8.8 g/dL (12.0-18.0); LYMPHOCYTES 10.4 % (24-44); MCHC 32.5 g/dl (30-36); MCV 92.2 fl (81-99); MONOCYTES 4.6 % (0-12); NEUTROPHILS 83.7 % (39-80); PLATELET COUNT 231 K/uL (140-440); RBC 2.94 M/ul (4.3-5.7); RDW 19.2 (10.5-15.0)
[2025-01-05 15:13] LABS: ALBUMIN 1.2 g/dL (3.4-5.0); ALBUMIN/GLOBULIN RATIO 0.26 (1.1-2.4); ANION GAP 8.1 (7-21); BILIRUBIN, TOTAL 0.6 mg/dL (0.2-1.0); BUN/CREATININE RATIO 5.69 (6.0-28.6); CALCIUM 7.5 mg/dL (8.5-10.1); CREATININE, SERUM 1.58 mg/dL (0.55-1.02); POTASSIUM 3.1 mmol/L (3.5-5.1); PROTEIN, TOTAL 5.8 g/dL (6.4-8.2)
[2025-01-05] MEDS ORDERED: ondansetron HCL 4 MG/2 ML VIAL IV ONE (15:15)
[2025-01-05 15:39] LABS: INR 1.5 (0.80-1.30); PROTIME 17.2 Sec (11.2-14.2)
[2025-01-05 15:41] LABS: PARTIAL THROMBOPLASTIN TIME 168.4 Sec (22.9-41.3)
[2025-01-05] MEDS ORDERED: HYDROCODONE/ACETA 5/325 TAB PO ONE (15:45)
[2025-01-05] MEDS ORDERED: DILTIAZEM HCl/D5W 125 ML IV ONE (17:30)
[2025-01-05] MEDS ORDERED: SODIUM CHLORIDE 0.9% 500 ML IV PRN (17:30)
[2025-01-05] MEDS ORDERED: dilTIAZem HCL 25 MG/5 ML VIAL IV ONE (18:00)
[2025-01-05 20:08] VITALS: BP 92/73
--- NOTE | 2025-01-05 22:07 | EKG ---
[facility] [address] [place] [address] Signed Atrial fibrillation with rapid ventricular response with premature ventricular or aberrantly conducted complexes Inferior infarct , age undetermined Anterior infarct , age undetermined Marked ST abnormality, possible lateral subendocardial injury Abnormal ECG When compared with ECG of 01-SEP-2024 14:23, Questionable change in QRS duration Anterior infarct is now present Inferior infarct is now present Confirmed by Jane Harvey MD () on 01/05/2025 10:07:41 PM Electronically Signed By: JANE HARVEY MD 01/05/252206 PATIENT NAME: ZEINAB ASHLEY Electrocardiogram DATE OF : 61 PHYSICIAN: JANE HARVEY MD REPORT #: [id number] REPORT IS CONFIDENTIAL AND NOT TO BE RELEASED WITHOUT AUTHORIZATION
== END 2025-01-05 20:10 | disposition short-term general hospital (02) ==
LOC: ED 14:17
PROVIDERS: Emergency Medicine
DX: I48.91 Unspecified atrial fibrillation (principal); I95.9 Hypotension, unspecified; N18.6 End stage renal disease; E11.22 Type 2 diabetes mellitus with diabetic chronic kidney disease; E11.40 Type 2 diabetes mellitus with diabetic neuropathy, unspecified; F17.200 Nicotine dependence, unspecified, uncomplicated; Z79.899 Other long term (current) drug therapy; Z91.041 Radiographic dye allergy status
CPT/HCPCS: 36415; 71045; 80053; 83605; 85025; 85610; 85730; 87040; 94640; 96374; 96375; 99285-25; J0696; J2405; J7040